=== PATIENT | male | born 1955 | race Caucasian/White ===

== ENCOUNTER 2025-04-07 22:01 | Inpatient (IN) | payer MEDICARE, OTHER, SELFPAY ==
[2025-04-07] VITALS (41 sets, daily range): BP systolic 82–195; BP diastolic 59–113; BMI 26.9
[2025-04-07] MEDS: ADRENALIN 250 IV (19:26)
[2025-04-07 19:38] LABS: Venous Blood Gas B.E. -7.9 mmol/L (-4 to +4); Venous Blood Gas O2 Sat % 98.5 %
[2025-04-07 19:44] LABS: Hematocrit 37.2 % (39.0-52.0); Hemoglobin 11.7 g/dL (13.0-18.0); Mean Corp Hgb Conc. 31.5 g/dL (33.0-37.0); Mean Corpuscular Volume 102.2 fL (80.0-94.0); Nucleated Red Blood Cells % 0.6 % (-); Platelet Count 166 10^3/uL (130-400); Red Cell Dist. Width 13.7 % (11.5-14.5)
[2025-04-07 19:57] LABS: APTT 34.9 Sec (23.4-35.0); INR 1.20; PT 15.5 Sec (11.4-14.6)
[2025-04-07 19:58] LABS: ALT (SGPT) 119 U/L (0-50); AST (SGOT) 203 U/L (17-59); Albumin 3.7 g/dl (3.5-5.0); Alkaline Phosphatase 89 U/L (38-126); Blood Urea Nitrogen 35 mg/dl (9-20); Calcium 8.9 mg/dl (8.4-10.2); Carbon Dioxide 21 mmol/L (22-30); Chloride 103 mmol/L (98-107); Glucose 327 mg/dl (70-99); Potassium 4.5 mmol/L (3.5-5.1); Sodium 137 mmol/L (135-145); Total Protein 7.0 g/dl (6.3-8.2); eGFR > 60.00
[2025-04-07 20:04] LABS: Troponin I 0.018 ng/ml
--- NOTE | 2025-04-07 20:13 | ED.GENMED ---
History of Present Illness
General
Chief Complaint: CODE
Time Seen by Provider: 04/07/25 19:03
History of Present Illness
History of Present Illness:
Patient presents to the emergency department status post cardiac arrest. Per report, patient is wheelchair-bound, has a PEG tube. He had a witnessed event while in his wheelchair where he became pale and unresponsive. He was not in a shockable
rhythm. He had about 26 minutes of ACLS with chest compressions. He was given multiple rounds of epinephrine and started on an epinephrine drip by medics. He was intubated in the field. There was a large amount of food in the airway found during
laryngoscopy. On arrival patient hypotensive, unresponsive, intubated. He had received no sedation prior to arriving at the hospital
Phy Exam
Physical Exam
Physical Exam:
GENERAL APPEARANCE: Obtunded, GCS 3 T
EYES pupils dilated and nonreactive
EARS/NOSE/THROAT Mucous membranes moist, endotracheal tube in place
HEAD/NECK normocephalic atraumatic, neck is supple.
RESPIRATORY patient does not have breath sounds on the right, no wheezes, no crackles
CARDIAC regular tachycardia noted, palpable peripheral pulses
ABDOMINAL soft, nondistended, peg tube in place
MUSCLES/EXTREMITIES tibial IO in place
SKIN pale
Course
Orders/Labs/Results
Orders:
Orders
04/07/25 19:06
Electrocardiogram (*1) Urgent
Reason for Study: Chest Pain
Cardiac Monitoring- Treatment ONCE
EKG- Treatment ONCE
IV Insert/Care/Rem.- Treatment PRN
04/07/25 19:10
Complete Blood Count/With Diff Urgent
Comprehensive Metabolic Panel Urgent
Lactic Acid Urgent
PTT Urgent
Prothrombin Time Urgent
Troponin I Urgent
04/07/25 19:11
Venous Blood Gas Urgent
%Oxygen/Room Air: 100
04/07/25 19:14
Chest X-ray Portable [CR Chest Portable - 1 View] Stat
Comment:
Reason For Exam: post cardiac arrest
Reason Study Needs to be Portable: Patient Unstable
04/07/25 19:17
EPINEPHrine 4 mg/250 mL NSS [Adrenalin] 4 mg in 250 ml .ROUTE .STK-MED
04/07/25 19:25
EPINEPHrine 4 mg/250 mL NSS [Adrenalin] 4 mg in 250 ml IV NOW
Initial dose in mcg/min, then titrate:: 10
Titrate to keep:: SBP > 90 mmHg
Titrate by mcg/min:: 0.5-1 mcg/min
Frequency of titrations (minutes):: 5
Maximum dose in mcg/min:: 10
Begin to taper infusion when:: Remained at goal for 4hrs
Taper by mcg/min:: 0.5-1 mcg/min
Frequency of taper (minutes) if patient maintains goal:: 30
Taper to off?: Yes
If infusion off & no longer maintaining goal:: Contact Provider
04/07/25 20:02
Chest X-ray Portable [CR Chest Portable - 1 View] Stat
Comment:
Reason For Exam: R chest tube placement
Reason Study Needs to be Portable: Patient Unstable
04/07/25 20:04
Azithromycin 500 mg/250 ml [Zithromax Infusion] 500 mg in 250 ml IV NOW
CefTRIAXone [Rocephin] 1,000 mg IV NOW STA
Sterile Water [Sterile Water For Injection] 10 ml IV NOW STA
04/07/25 20:43
ABG [Arterial Blood Gas] Urgent
%Oxygen/Room Air: 100
04/07/25 20:45
CT Head W/o Iv Contrast Urgent
Comment:
Reason For Exam: altered mental status, cardiac arrest
04/07/25 21:13
Admit/Transfer Patient As Directed
Co-Sign Provider:
Level of Care: Inpatient admission
Assign to:: ICU
Physician / Group: Temo
Diagnosis: Cardiac arrest
Reason for Hospitalization: Cardiac arrest
Expected length of stay greater than two midnights?: Yes
ELOS- Estimated Length of Stay in days: 2
I certify the patient meets the requirements for IP care: Yes
04/07/25 21:15
Type+Screen Urgent
BBK Wristband Number:
04/07/25 21:20
Code Status As Directed
Resuscitation Status: Full Code
04/07/25 21:24
PRN Pain Medication Management As Directed
May give lesser potent ordered pain med per pt: Yes
preference::
Protocol:: Medication orders for pain may be administered in a
manner that supports deferring to patient preference
when the pt is:
- Requesting an ordered lesser potent pain medication.
Least to most potent pain medications are defined
as: acetaminophen < NSAID < tramadol < opioids
(morphine, oxycodone, hydromorphone).
- Requesting a lesser dose of the same medication IF
ORDERED.
- Requesting a less intrusive route of administration
if both routes are prescribed by the provider (PO <
IV).
04/07/25 21:25
CT Chest PE Study Stat
Comment:
Reason For Exam: cardiac arrest
04/07/25 22:13
Bisacodyl [Dulcolax] 10 mg RECTAL [id number] PRN
Dextrose 50%-Water [Dextrose 50% Syringe] 12.5 grams IV [id number] PRN
Docusate W/Senna [Senokot-S] 1 tablet PO BIDPRN PRN
FentaNYL 1,000 MCG/100 ML [Sublimaze] 1,000 mcg in 100 ml IV PER PROTOCOL
Indication:: Deep Sedation
Begin Infusion:: Now
Goal:: RASS </= -3, BIS 40-60, ventilator synchrony
Maximum dose in mcg/hr:: 300
Initial Dose in mcg/hr:: 2
Titration Instructions:: Titrate Q30 min until ventilator synchrony, RASS or BIS goal is met.
Titration Instructions:: If RASS >/= -2 or BIS > 60 or ventilator dyssynchrony:
Titration Instructions:: administer bolus dose and increase infusion by 25 mcg/hr.
Titration Instructions:: Administer analgesia bolus dose(s) & titrate analgesia prior to
Titration Instructions:: adjusting sedation.
Over-sedation Instructions:: if BIS < 40 and pt is synchronous with ventilator, decrease infusion by
Over-sedation Instructions:: 25 mcg/hr every 2 hours until BIS = 40-60.
Over-sedation Instructions:: Do not wean infusion to off if patient is receiving a continuous NMBA or
Over-sedation Instructions:: has received a bolus dose of NMBA within the past 3 hours.
Notify provider:: immediately if pt exhibits signs/symptoms of chest wall rigidity,
Notify provider:: hemodynamic instability, or agitation/pain despite maximum dosing.
Additional Instructions:: Patient MUST be mechanically ventilated.
Fentanyl Citrate/Pf [Sublimaze] 50 mcg IV [id number] PRN
Fentanyl Citrate/Pf [Sublimaze] 85 mcg IV NOW STA
Glucagon [GlucaGen] 1 mg IM PRN PRN
Ipratropium/Albuterol Sulfate [Duoneb] 3 ml INH R Q4HPRN PRN
Lactated Ringers [Lr] 1,000 ml IV 100 mls/hr
Ondansetron Injectable [Zofran] 4 mg IV Q6HPRN PRN
Polyethylene Glycol Powder [Miralax] 17 grams TUBE DAILYPRN PRN
04/07/25 22:13
Activity As Directed
Activity Level: With Assistance
Bedside Glucose Monitoring As Directed
Frequency: AC&HS
Additional Instructions:: Change to q6h if pt on TPN, tube feeding or not eating
Gastrointestinal Tubes As Directed
Type: Gastrostomy
To suction?: No
Irrigate tube?: Yes
Irrigant: Normal Saline - 0.9% NaCl
Frequency: Q4H
Amount in mls: 30
Irrigation Directions: Irrigate Q4H and PRN
Vital Signs As Directed
Frequency: Per unit guidelines
Pulse Ox/cont/shift [RESP] Routine
Quantity: 1
Ventilator Initial Settings [RESP] Routine
Tidal Volume: 450
Rate: 20
FIO2: 100
PEEP: 5
DX Deep Vein Thrombosis Video Routine
04/07/25 23:11
Troponin I Q6H
Valproic Acid Level [Depakane] Routine
04/08/25 00:00
Ampicillin/Sulbactam 3 G [Unasyn] 3 gm 0.9% Sodium Chloride 100 ml [Nss] 100 ml IV Q6H
Insulin Aspart Corrective Low [Novolog Flexpen-Low Resistance] See Protocol SC Q6
04/08/25 04:30
Complete Blood Count/No Diff IN AM
Glycohemoglobin (HgbA1c) IN AM
Magnesium IN AM
Troponin I Q6H
04/08/25 Breakfast
NPO
Allow oral meds: No
Allow clear liquids: No
04/08/25 08:00
Famotidine [Pepcid] 20 mg TUBE DAILY
Polyethylene Glycol Powder [Miralax] 17 grams TUBE DAILY
04/08/25 13:54
Troponin I Q6H
04/08/25 18:00
Enoxaparin Sodium [Lovenox] 40 mg SC QPM
Levothyroxine [Synthroid] 50 mcg TUBE QPM
Abnormal Lab Results
04/07/25 04/07/25 04/07/25
19:10 19:11 20:43
RBC 3.64 L 10^6/uL
(4.70-6.10)
Hgb 11.7 L g/dL
(13.0-18.0)
Hct 37.2 L %
(39.0-52.0)
MCV 102.2 H fL
(80.0-94.0)
MCH 32.1 H pg
(27.0-31.0)
MCHC 31.5 L g/dL
(33.0-37.0)
Abs Immat Gran (auto) 0.3 H 10^3/uL
(0-0.05)
Immature Gran % 2.5 H %
(0-0.5)
PT 15.5 H Sec
(11.4-14.6)
pH 7.26 L
(7.35-7.45)
pCO2 50 H mmHg
(35-48)
pO2 142 H mmHg
(83-108)
ABG O2 Sat (Measured) 100.0 H %
(94-98)
VBG pH 7.17 L*
(7.32-7.43)
VBG pCO2 58 H mmHg
(35-48)
VBG pO2 116 H mmHg
(30-50)
VBG HCO3 21.2 L mmol/L
(22-27)
Carbon Dioxide 21 L mmol/L
(22-30)
BUN 35 H mg/dl
(9-20)
Glucose 327 H mg/dl
(70-99)
Lactic Acid 7.7 H* mmol/L
(0.7-2.0)
AST 203 H U/L
(17-59)
ALT 119 H U/L
(0-50)
04/07/25 19:10
04/07/25 19:10
Vital Signs
Initial and Last Documented VS:
Initial Vital Signs
Pulse
126
04/07/25 19:08
Last Documented Vital Signs
Temp Pulse Resp BP Pulse Ox
96.9 F L 97 20 134/86 93
04/08/25 13:00 04/08/25 13:27 04/08/25 13:27 04/08/25 10:22 04/08/25 13:27
Procedures
Central Line
Right Femoral:
Indication for procedure:: Critical illness, no intravenous access
Procedure completed by: Dr Kahn
Consent form signed: No
If no, reason: Emergency procedure
Central line lumen: triple
Number of attempts: 1
Central line complications: none
Sterile dressing applied?: Yes
Chest Tube
Indication for procedure:: Moderate R sided pneumothorax, cardiac arrest
Procedure completed by: Dr Kahn
Consent form signed: No
If no, reason: Emergency procedure
Chest tube placed to: right side
Preparation: cleaned with Betadine
Chest tube position: position confirmed on CXR
Chest tube sutured to skin?: Yes
Chest tube complications: none
*Pulse Oximetry
SaO2: 91
Oxygen Mode of Delivery: Ventilator
Patient hypoxic: yes
*Critical Care Note
Total Time (30-74mins, 75-104mins- exclusive of procedures): 35
comment:
35 minutes
ED Attending Note
ED Attending Note
ED Attending Note:
Patient presents from [facility] after a cardiac arrest. Has a PEG tube, wheelchair dependent, hx of hep c, diabetes
apparently was eating a peanut butter sandwich when he had a witnessed cardiac arrest
had ACLS with chest compressions for about 26 minutes. No shockable rhythms
on arrival he had ROSC and was intubated
he was hypotensive in shock, norepinephrine was started then he became hypertensive and it was turned off -- it is currently off
he had a moderate sized R sided pneumothorax and 14 fr pigtail chest tube was placed. It is at the base but functioning well, pneumothorax resolved on repeat CXR
suspect he aspirated as there was food content in the airway
there is no obvious consolidation on xray but the RUL and RML look like there may be a developing infiltrate
Covering with CTX/azithro for possible pneumonia
will be admitted to ICU
-
Portions of this chart may have been created with voice recognition software.� Occasional wrong word or��sound alike� substitutions may have occurred due to the inherent limitations of voice recognition software.
Discharge Plan
Departure
Patient Disposition: Admit
Date of Disposition: 04/07/25
Time of Disposition: 20:18
Admit to: ICU
Presentation/result/management discussed w/ accepting MD/DO: Hospitalist
Discharge Problem:
Cardiac arrest, Aspiration into airway, Pneumothorax
Interventions
Interventions:
*Risk Screen - Suicide Last Done: 04/07/25 19:22
*General Assessment Last Done: 04/07/25 19:22
*Neglect/Abuse Screening Last Done: 04/07/25 19:22
*ED- Fall Risk Assessment Last Done: 04/07/25 19:22
*ED COVID-19 Vaccine History Last Done: 04/07/25 19:22
*ED Influenza Vaccine History Last Done: 04/07/25 19:22
*Nursing Disposition Last Done: 04/07/25 22:18
ED- Cardiac Assessment Last Done: 04/07/25 19:32
ED- Pulmonary Assessment Last Done: 04/07/25 19:32
Discharge Date and Time
Discharge Date/Time: 04/07/25 22:19
[2025-04-07] MEDS: ZITHROMAX INFUSION 250 IV (20:32)
[2025-04-07] MEDS: ROCEPHIN 1000 MG IV (20:32)
--- NOTE | 2025-04-07 20:47 | HPS.HSE ---
Family Physician
-
Family Physician: Kp Fox
Chief Complaint
-
Cardiac arrest
History of Present Illness
This is a 70-year-old wheelchair-bound patient status post PEG tube placement who had a witnessed cardiac arrest at [facility]..
Patient is unable to provide any history. According to records patient was eating a peanut butter sandwich when he had a witnessed cardiac arrest. He had ACLS with chest compressions for about 26 minutes.
Patient by history is wheelchair-bound, he status post maker and is strictly NPO. Unclear why he is currently at the rehab. He has had history of diabetes complicated by diabetic foot ulcer. He has COPD with moderate asthma. It was unclear
provide the patient was eating a sandwich but he was not supposed to have it. It is felt that he likely aspirated and choked and resulted in cardiac arrest.
He arrived to the emergency department intubated on norepinephrine with hypotension on arrival. Norepinephrine was weaned off.
Current blood pressures been 127/82 with a pulse of 127 and was satting 91% on the vent. ECG shows sinus tachycardia at a rate of 127. His chest x-ray did showed a moderate right pneumothorax. Pigtail catheter has been placed and found to be
functioning well with resolution of pneumothorax on repeat chest x-ray.
Troponin was 0.018. He had a white count of 13, hemoglobin and platelets were within the normal range. Electrolytes BUN and creatinine were normal with a glucose of 300. He had mild elevation in AST to 200 and ALT to 100 with normal bilirubin
levels.
Medical History
Past Medical History
Past Medical History: Reports COPD, GERD, Hypercholesterolemia, IDDM, Psychiatric (Schizoaffective disorder) and Other (Peripheral vascular disease)
Past Surgical History: Reports Other
Social History
Tobacco: Non-smoker
Alcohol: None
Drug: None
Living: Custodial
Family History
Family History: Not pertinent
Allergies / Home Medications
Allergies reflects when Allergies were last updated in [employer].
Home Medications with original date entered in [employer]
Allergy/Medication List:
Allergies
Allergy/AdvReac Type Severity Reaction Status Date / Time
adhesive tape Allergy Unknown Verified 04/07/25 20:25
bee venom protein (honey bee) Allergy Unknown Verified 04/07/25 20:25
bupropion (From Wellbutrin) Allergy Unknown Verified 04/07/25 20:25
celecoxib (From Celebrex) Allergy Unknown Verified 04/07/25 20:25
trazodone Allergy Unknown Verified 04/07/25 20:25
Home Medications
Metamucil 4 In 1 Fiber Packets 1 packet feeding tube DAILYPRN PRN constipation 04/07/25
acetaminophen 325 mg tablet (Tylenol) 650 mg feeding tube Q4HPRN PRN MILD PAIN 04/07/25
albuterol sulfate 90 mcg/actuation aerosol inhaler 2 puff inhalation R Q4HPRN PRN sob 04/07/25
aluminum-mag hydroxide-simethicone 400 mg-400 mg-40 mg/5 mL oral susp (Maalox Maximum Strength) 30 ml feeding tube Q6HPRN PRN GERD 04/07/25
atorvastatin 40 mg tablet (Lipitor) 40 mg feeding tube HS High Cholesterol 04/07/25
balsam abimael-castor oil topical ointment (Venelex topical ointment) 1 applic topical BID BLLE UE 04/07/25
bisacodyl 10 mg rectal suppository (Dulcolax (bisacodyl)) 10 mg AZ DAILYPRN PRN if no bm aftr mom 04/07/25
budesonide 160 mcg-glycopyr 9 mcg-formot 4.8 mcg/actuation HFA inhaler (Breztri Aerosphere) 2 inh inhalation R BID sob 04/07/25
cephalexin 250 mg/5 mL oral suspension 500 mg feeding tube QID Infection 04/07/25
cholecalciferol (vitamin D3) 10 mcg/5 mL (400 unit/5 mL) oral liquid 50 mcg PO DAILY G-TUBE 04/07/25
cyanocobalamin (vitamin B-12) 2,500 mcg tablet 2,500 mcg feeding tube DAILY up 04/07/25
famotidine 20 mg tablet (Pepcid) 20 mg feeding tube DAILY gerd 04/07/25
ferrous sulfate 220 mg (44 mg iron)/5 mL oral solution 330 mg feeding tube BID Supplement 04/07/25
guaifenesin 100 mg/5 mL oral liquid (Reyna-Tussin) 100 mg feeding tube Q4HPRN PRN COUGH 04/07/25
insulin aspart U-100 100 unit/mL (3 mL) subcutaneous pen (Novolog FlexPen U-100 Insulin aspart) 1 sliding scale dose SC ACHS Diabetes 04/07/25
insulin degludec 100 unit/mL (3 mL) subcutaneous pen 15 unit SC HS Diabetes 04/07/25
levothyroxine 50 mcg tablet (Synthroid) 50 mcg feeding tube QPM Thyroid 04/07/25
lidocaine 4 % topical patch 1 patch topical DAILY BACK 04/07/25
loperamide 2 mg capsule 2 mg feeding tube Q6HPRN PRN diarrhea 04/07/25
magnesium hydroxide 400 mg/5 mL oral suspension (Milk of Magnesia) 2,400 mg feeding tube DAILYPRN PRN if no bm aftr 3rd day 04/07/25
magnesium oxide 400 mg feeding tube BID Supplement 04/07/25
melatonin 3 mg tablet 3 mg feeding tube HS Sleep 04/07/25
metformin 1,000 mg tablet 1,000 mg feeding tube BID Diabetes 04/07/25
mupirocin 2 % topical ointment 1 applic topical DAILYPRN PRN NOSE LACERATION 04/07/25
mupirocin 2 % topical ointment 1 applic topical Q48H LACERATION 04/07/25
nutrition tx glu intol,lac-free,soy-fiber 0.06 gram-1.2 kcal/mL liquid (Glucerna 1.2 Kwan) 1 ea feeding tube QPM feeding 04/07/25
olanzapine 10 mg tablet 12.5 mg feeding tube HS Mental Health/Anxiety 04/07/25
phenylephrine 0.25 %-mineral oil 14 %-petrolatm 74.9 % rectal ointment (Preparation H) 1 applic AZ DAILYPRN PRN hemmorriods 04/07/25
polyvinyl alcohol-povidone (PF) 1.4 %-0.6 % eye drops in a dropperette (Refresh Classic (PF)) 2 drp BOTH EYES BIDPRN PRN DRYNESS 04/07/25
povidone-iodine 10 % topical solution (Betadine) 1 applic topical DAILYPRN PRN LEFT GOMEZ 04/07/25
povidone-iodine 10 % topical solution (Betadine) 1 applic topical QPM LEFT GOMEZ 04/07/25
sodium chloride 1 gram tablet 2,000 mg PO BID Supplement 04/07/25
sodium phosphates 19 gram-7 gram/118 mL enema (Fleet Enema) 118 ml AZ DAILYPRN PRN if no bm aftr dulcolax 04/07/25
therapeutic multivitamin 5 ml feeding tube QPM Supplement 04/07/25
valproic acid (as sodium salt) 250 mg/5 mL oral solution 500 mg feeding tube TID Neurological Condition 04/07/25
witch catina 20 % topical pads 1 pad topical Q2HPRN PRN hemmoriods 04/07/25
Review of Systems
-
Unable to obtain full review of systems at this time due to: Patient Intubation
Physical Exam
Vital Signs
Vital Signs
Pulse Resp BP Pulse Ox
127 18 127/82 91
04/07/25 19:25 04/07/25 19:15 04/07/25 19:25 04/07/25 20:14
Physical Exam
General: Intubated
HEENT: NormoCephalic and Anicteric; No PERRLA
Respiratory: Clear
Cardiac: S1/S2 and Tachycardia
Breast: Deferred by me
GI: Soft, Non Distended, Normal Bowel Sounds and Peg Tube
Rectal: Deferred by Provider
Genito-urinary: Deferred by me
Musculoskeletal: No Clubbing, No Cyanosis and Edema, Right Lower Extremity (trace)
Skin: Warm and Rash
Neuro: Other (Obtunded. Intubated. No reaction and no sedation)
Laboratory Results
-
04/07/25 19:10
04/07/25 19:10
Laboratory Results
PT 15.5 Sec (11.4-14.6) H 04/07/25 19:10
INR 1.20 04/07/25 19:10
APTT 34.9 Sec (23.4-35.0) 04/07/25 19:10
Lactic Acid 7.7 mmol/L (0.7-2.0) H* 04/07/25 19:10
Total Bilirubin 0.4 mg/dl (0.2-1.3) 04/07/25 19:10
AST 203 U/L (17-59) H 04/07/25 19:10
ALT 119 U/L (0-50) H 04/07/25 19:10
Alkaline Phosphatase 89 U/L (38-126) 04/07/25 19:10
Troponin I 0.018 ng/ml 04/07/25 19:10
Data Reviewed
-
Diagnostic Radiology: Image Personally Visualized and interpreted and Report Reviewed by me
CT Scan: Report Reviewed by me
Medical Tests (Nuc Med, Echo, EKG etc): Image Personally Visualized and interpreted
Lab Data: Labs Reviewed by me
Impression/Plan
-
IMPRESSION:
70-year-old presenting to the ED status post cardiac arrest. ACLS x 26 minutes. On arrival was intubated and unresponsive. He is not on any sedatives. Oxygen saturation is 100% on 100% FiO2. There is no pupillary response. Had a pneumothorax
likely secondary to CPR trauma but unclear if this was the cause of his arrest.
Patient apparently was in usual state of health and without any complaints with just prior to being found unresponsive. No arrhythmia noted. Current ECG sinus tachycardia and troponin is negative. He is status post chest tube with improvement in
the pneumothorax. Currently more dynamically stable.
PLAN:
Cardiac arrest -suspect secondary to aspiration but cannot rule out pneumothorax of the first etiology. No evidence of acute NE or arrhythmia. No plans for therapeutic plan at this time. Patient
-Downtime is greater than 26 minutes, currently completely unresponsive with fixed mid dilated pupils.
-Admit to ICU
-CT brain
- CT PE
-Follow-up ABG currently and maintaining good oxygenation on current vent settings
-Continue settings at respirate rate of 450 and 100% 5 FiO2
- Trend troponins
- echo in am
- Maintain MAP > 65
- maintenance fluids
- will start fentanyl analgesia
- consider eeg in am and neurology consult if remains unresponsive
- ppi ppx
- no therapeutic cooling
- cardiology consult
PTX
- s/p chest tube, monitor output for now
- repeat xray in am
- suspect secondary to trauma
PNA - No evidence of acute infiltrates.
- given possible aspiration, will treat with unasyn
- blood cultures if spike fever
- no broncospasms, continue ipratropium
Schizoaffective di/o
- check valproic acid level
- continue depakote 500 tid peg
- continue olanzapine peg
DM II
- sliding scale insulin
DVT PPX - lovenox sq
Code status - Full code as per ID records. Called emergency contact who is the sister but did not get a response. Spoke to the answering service of the listed Guardian and updated them.
[2025-04-07 20:49] LABS: B.E. -5.0 mmol/L; HCO3 22.4 mmol/L (21-28); O2 Saturation % 100.0 % (94-98); PCO2 50 mmHg (35-48); PO2 142 mmHg (83-108)
[2025-04-07 22:37] LABS: Glucose - Point of Care 316 mg/dl (70-99)
[2025-04-07] MEDS: LR 1000 IV (22:55)
[2025-04-07 23:42] LABS: Depakane 31.9 ug/ml (50.0-120.0)
[2025-04-07 23:47] LABS: ALT (SGPT) 117 U/L (0-50); AST (SGOT) 204 U/L (17-59); Albumin 3.9 g/dl (3.5-5.0); Alkaline Phosphatase 93 U/L (38-126); Blood Urea Nitrogen 41 mg/dl (9-20); Calcium 9.1 mg/dl (8.4-10.2); Carbon Dioxide 22 mmol/L (22-30); Chloride 103 mmol/L (98-107); Estimated Creatinine Clearance 72 ml/min; Glucose 347 mg/dl (70-99); Potassium 4.5 mmol/L (3.5-5.1); Sodium 138 mmol/L (135-145); Total Protein 7.3 g/dl (6.3-8.2); eGFR > 60.00
[2025-04-08] VITALS (15 sets, daily range): BP systolic 95–158; BP diastolic 66–92; BMI 25.1
[2025-04-08 00:05] LABS: Troponin I 0.367 ng/ml
[2025-04-08] MEDS: SUBLIMAZE 85 MCG IV (00:10)
[2025-04-08] MEDS: UNASYN IV ×5 (00:21→23:28)
--- NOTE | 2025-04-08 00:22 | W.PN.UPDATE ---
Update Note
Progress Note Update
Procedure Note: Arterial Line�
� Left Wrist Arrow 20 (08/27)�
Diagnosis:��Cardiac arrest
IV Line Comments: Uneventful Procedure�
Rony completed pre-procedure: Yes�
A-Line Comments: Sterile technique as per standard protocol, Ultrasound guided insertion�
Functioning�A-line in situ: Yes�
A-line Insertion Start Time:��2345
A-line in at:�2355�
[2025-04-08] MEDS: NOVOLOG FLEXPEN 12 UNITS SC (00:41)
[2025-04-08] MEDS: DIPRIVAN 100 IV (00:44)
--- NOTE | 2025-04-08 01:00 | PTCARENOTE ---
Cerebell applied per order. 0 seizure activity noted. Pt is intubated and unresponsive. Pupils are unequal and unreactive to light. No gag reflex noted. Pt does not withdraw to pain stimuli. Pt is asynchronous w/ vent. Fentanyl bolus administered by
this RN. Propofol gtt initiated by this RN per order.
[2025-04-08] MEDS: REFRESH CELLUVISC GEL 1 DROPS OPHTH (01:03)
[2025-04-08] MEDS: CARDENE 200 IV (01:10)
--- NOTE | 2025-04-08 02:00 | PTCARENOTE ---
Cardene gtt initiated by this RN for HTN but was turned off approx. 45 mins later due to overcorrection of BP.
[2025-04-08 02:11] LABS: Triglycerides 124 mg/dl (10-149)
[2025-04-08 02:15] LABS: B.E. -2.6 mmol/L; HCO3 23.7 mmol/L (21-28); O2 Saturation % 96.4 % (94-98); PCO2 46 mmHg (35-48); PO2 80 mmHg (83-108)
[2025-04-08] MEDS: OFIRMEV 100 IV ×4 (03:44→22:47)
[2025-04-08 03:46] LABS: Glucose - Point of Care 216 mg/dl (70-99)
[2025-04-08 04:54] LABS: Hematocrit 38.8 % (39.0-52.0); Hemoglobin 12.8 g/dL (13.0-18.0); Mean Corp Hgb Conc. 33.0 g/dL (33.0-37.0); Mean Corpuscular Volume 97.7 fL (80.0-94.0); Platelet Count 149 10^3/uL (130-400); Red Cell Dist. Width 13.9 % (11.5-14.5)
[2025-04-08 05:09] LABS: ALT (SGPT) 112 U/L (0-50); AST (SGOT) 237 U/L (17-59); Albumin 3.7 g/dl (3.5-5.0); Alkaline Phosphatase 78 U/L (38-126); Blood Urea Nitrogen 43 mg/dl (9-20); Calcium 9.1 mg/dl (8.4-10.2); Carbon Dioxide 25 mmol/L (22-30); Chloride 105 mmol/L (98-107); Estimated Creatinine Clearance 83 ml/min; Glucose 165 mg/dl (70-99); Magnesium 2.2 mg/dl (1.6-2.3); Potassium 4.6 mmol/L (3.5-5.1); Sodium 139 mmol/L (135-145); Total Protein 7.3 g/dl (6.3-8.2); eGFR > 60.00
[2025-04-08 05:23] LABS: Troponin I 1.050 ng/ml
--- NOTE | 2025-04-08 05:30 | PTCARENOTE ---
Pt becoming febrile. T-max 102.3. IV tylenol administered by this RN. In addition cooling blanket applied to pt per order.
[2025-04-08] MEDS: NOVOLOG FLEXPEN-HIGH RESISTANCE 1 UNITS SC ×2 (05:54→23:03)
[2025-04-08 06:03] LABS: Glucose - Point of Care 132 mg/dl (70-99)
[2025-04-08] MEDS: NSS (PRESERVATIVE FREE) 10 ML IV ×2 (07:43→19:51)
[2025-04-08] MEDS: PROTONIX IV 40 MG IV ×2 (07:43→19:51)
[2025-04-08] MEDS: LR 1000 IV ×2 (07:44→17:41)
[2025-04-08 08:59] LABS: Glycohemoglobin (HgbA1c) 6.0 % (4.0-5.6)
--- NOTE | 2025-04-08 09:02 | CON.INTV ---
Consultation
Consultation Request
Date/Time Consultation Requested: 04/08/25
Date/Time Consultation Performed: 04/08/25 08:00
Requesting Provider: Gilbert Morley MD
Performing Provider: William Wade DO (Resident); Nate Mathews MD
Reason for Consultation: ICU Management Post Cardiac Arrest
Medical History
-
Chief Complaint: Cardiac Arrest, Altered Mental Status
History of Present Illness:
Moustapha Brown is a 70M w/ PMHx COPD, GERD, HLD, IDDM, schizoaffective disorder, PVD, wheelchair-bound, status post PEG tube placement who had a witnessed cardiac arrest at the custodial. Patient status post open procedure, has a PEG tube in
place, is supposed to be NPO. However patient somehow obtained a preoperative sandwich which he likely choked on and aspirated resulting in cardiac arrest while at the custodial. Per custodial staff and EMS, patient was not in a shockable
rhythm, received 26 minutes of ACLS with chest compressions and multiple rounds of epi. A large amount of food was found in the airway during laryngoscopy and patient was intubated in the field. He arrived to the emergency department intubated and
hypotensive on an epinephrine drip.
ED COURSE
Upon arrival to the Emergency Department, patient was obtunded with a GCS of 3, pupils were dilated and unreactive, ET tube was in place, patient had no breath sounds on the right and was tachycardic.
CBC unremarkable
VBG pH 7.17, pCO2 58, pO2 116, HCO3 21.2
CMP with elevated BUN, glucose of 327
Lactic acid on arrival 7.7
AST 203 ALT 119
Troponin initially negative, increased to 0.367, and then 1.05
CXR (initial) moderate right PTX
Chest tube placed
CXR (subsequent): Residual small right PTX
CT head: No acute intracranial process. Possible dense MCA sign.
CT chest: No evidence of PE. Rib fractures present. Chest tube in place. Probable aspiration pneumonia within the right upper lobe, superior segment of right lower lobe, dependent left lower lobe.
ECG sinus tach, possible old inferior infarct
History continues to be limited in the setting of patient acuity. Per nursing, overnight patient had vent asynchrony with fentanyl and was transitioned to propofol. He continues to be without pupillary light reflex, gag reflex, cough reflex.
Past Medical History
Past Medical History: Other (COPD, GERD, HLD, IDDM, schizoaffective disorder, PVD, wheelchair-bound, status post PEG tube placement)
Social History
Living: [facility]
Family History
Family History: Unable to Obtain
Allergies / Home Medications
Allergies
Allergy/AdvReac Type Severity Reaction Status Date / Time
adhesive tape Allergy Unknown Verified 04/07/25 20:25
bee venom protein (honey bee) Allergy Unknown Verified 04/07/25 20:25
bupropion (From Wellbutrin) Allergy Unknown Verified 04/07/25 20:25
celecoxib (From Celebrex) Allergy Unknown Verified 04/07/25 20:25
trazodone Allergy Unknown Verified 04/07/25 20:25
Home Medications
�Medication �Instructions �Recorded �Confirmed �Last Taken �Type
Metamucil 4 In 1 Fiber Packets 1 packet feeding tube DAILYPRN PRN 04/07/25 04/07/25 Unknown History
constipation
acetaminophen 325 mg tablet 650 mg feeding tube Q4HPRN PRN 04/07/25 04/07/25 03/07/25 History
(Tylenol) MILD PAIN
albuterol sulfate 90 mcg/actuation 2 puff inhalation R Q4HPRN PRN sob 04/07/25 04/07/25 Unknown History
aerosol inhaler
aluminum-mag hydroxide-simethicone 30 ml feeding tube Q6HPRN PRN GERD 04/07/25 04/07/25 Unknown History
400 mg-400 mg-40 mg/5 mL oral susp
(Maalox Maximum Strength)
atorvastatin 40 mg tablet (Lipitor) 40 mg feeding tube HS High 04/07/25 04/07/25 04/06/25 History
Cholesterol
balsam abimael-castor oil topical 1 applic topical BID BLLE UE 04/07/25 04/07/25 04/07/25 History
ointment (Venelex topical ointment)
bisacodyl 10 mg rectal suppository 10 mg IA DAILYPRN PRN if no bm 04/07/25 04/07/25 Unknown History
(Dulcolax (bisacodyl)) aftr mom
budesonide 160 mcg-glycopyr 9 2 inh inhalation R BID sob 04/07/25 04/07/25 04/07/25 History
mcg-formot 4.8 mcg/actuation HFA
inhaler (Breztri Aerosphere)
cephalexin 250 mg/5 mL oral 500 mg feeding tube QID Infection 04/07/25 04/07/25 04/07/25 History
suspension
cholecalciferol (vitamin D3) 10 50 mcg PO DAILY G-TUBE 04/07/25 04/07/25 04/07/25 History
mcg/5 mL (400 unit/5 mL) oral
liquid
cyanocobalamin (vitamin B-12) 2,500 mcg feeding tube DAILY 04/07/25 04/07/25 04/07/25 History
2,500 mcg tablet Supplement
famotidine 20 mg tablet (Pepcid) 20 mg feeding tube DAILY gerd 04/07/25 04/07/25 04/07/25 History
ferrous sulfate 220 mg (44 mg 330 mg feeding tube BID Supplement 04/07/25 04/07/25 04/07/25 History
iron)/5 mL oral solution
guaifenesin 100 mg/5 mL oral 100 mg feeding tube Q4HPRN PRN 04/07/25 04/07/25 03/08/25 History
liquid (Reyna-Tussin) COUGH
insulin aspart U-100 100 unit/mL 1 sliding scale dose SC ACHS 04/07/25 04/07/25 04/05/25 History
(3 mL) subcutaneous pen (Novolog Diabetes
FlexPen U-100 Insulin aspart)
insulin degludec 100 unit/mL (3 15 unit SC HS Diabetes 04/07/25 04/07/25 04/06/25 History
mL) subcutaneous pen
levothyroxine 50 mcg tablet 50 mcg feeding tube QPM Thyroid 04/07/25 04/07/25 04/07/25 History
(Synthroid)
lidocaine 4 % topical patch 1 patch topical DAILY BACK 04/07/25 04/07/25 04/07/25 History
loperamide 2 mg capsule 2 mg feeding tube Q6HPRN PRN 04/07/25 04/07/25 Unknown History
diarrhea
magnesium hydroxide 400 mg/5 mL 2,400 mg feeding tube DAILYPRN PRN 04/07/25 04/07/25 Unknown History
oral suspension (Milk of Magnesia) if no bm aftr 3rd day
magnesium oxide 400 mg feeding tube BID Supplement 04/07/25 04/07/25 04/07/25 History
melatonin 3 mg tablet 3 mg feeding tube HS Sleep 04/07/25 04/07/25 04/06/25 History
metformin 1,000 mg tablet 1,000 mg feeding tube BID Diabetes 04/07/25 04/07/25 04/07/25 History
mupirocin 2 % topical ointment 1 applic topical DAILYPRN PRN NOSE 04/07/25 04/07/25 04/07/25 History
LACERATION
mupirocin 2 % topical ointment 1 applic topical Q48H LACERATION 04/07/25 04/07/25 04/07/25 History
nutrition tx glu 1 ea feeding tube QPM feeding 04/07/25 04/07/25 04/06/25 History
intol,lac-free,soy-fiber 0.06
gram-1.2 kcal/mL liquid (Glucerna
1.2 Kwan)
olanzapine 10 mg tablet 12.5 mg feeding tube HS Mental 04/07/25 04/07/25 04/06/25 History
Health/Anxiety
phenylephrine 0.25 %-mineral oil 1 applic IA DAILYPRN PRN 04/07/25 04/07/25 Unknown History
14 %-petrolatm 74.9 % rectal hemmorriods
ointment (Preparation H)
polyvinyl alcohol-povidone (PF) 2 drp BOTH EYES BIDPRN PRN DRYNESS 04/07/25 04/07/25 09/16/24 History
1.4 %-0.6 % eye drops in a
dropperette (Refresh Classic (PF))
povidone-iodine 10 % topical 1 applic topical DAILYPRN PRN LEFT 04/07/25 04/07/25 Unknown History
solution (Betadine) GOMEZ
povidone-iodine 10 % topical 1 applic topical QPM LEFT GOMEZ 04/07/25 04/07/25 04/07/25 History
solution (Betadine)
sodium chloride 1 gram tablet 2,000 mg PO BID Supplement 04/07/25 04/07/25 04/07/25 History
sodium phosphates 19 gram-7 118 ml IA DAILYPRN PRN if no bm 04/07/25 04/07/25 Unknown History
gram/118 mL enema (Fleet Enema) aftr dulcolax
therapeutic multivitamin 5 ml feeding tube QPM Supplement 04/07/25 04/07/25 04/07/25 History
valproic acid (as sodium salt) 250 500 mg feeding tube TID 04/07/25 04/07/25 04/07/25 History
mg/5 mL oral solution Neurological Condition
witch catina 20 % topical pads 1 pad topical Q2HPRN PRN hemmoriods 04/07/25 04/07/25 Unknown History
Review of Systems
-
Unable to Obtain full review of systems at this time due to: Acuity and Patient Intubation
Vitals / Labs / Diagnostic Testing
Vital Signs
Temp Pulse Resp BP Pulse Ox
101.4 F H 111 20 117/80 98
04/08/25 08:00 04/08/25 08:00 04/08/25 08:00 04/08/25 08:00 04/08/25 08:00
Lab Data
04/08/25 04:30
04/08/25 04:30
Laboratory Results
04/07/25 04/07/25 04/08/25
19:10 20:43 02:03
PT 15.5 H
INR 1.20
APTT 34.9
pH 7.26 L 7.32 L
pCO2 50 H 46
pO2 142 H 80 L
HCO3 22.4 23.7
O2 Delivery Level
Diagnostic Testing:
CXR: Residual small right pneumothorax status post chest tube placement.
CT HEAD: No convincing acute intracranial process. Probable chronic calcification at the M1/M2 junction, less likely dense MCA sign. Consider follow-up CT head in 2-3 hours and/or CTA head/neck, as clinically indicated.
CHEST CT: No evidence of pulmonary embolism. Nondisplaced/minimally displaced fractures involving the anterior/anterolateral right second and third ribs and left second through seventh ribs. Right pneumothorax with chest tube in place. Findings
suggesting probable aspiration pneumonia within the bilateral lungs as described.
Physical Exam
-
HEENT: Moist Mucous Membranes and Other (Pupils fixed and dilated. )
Cardiovascular: S1/S2, Regular Rhythm and Other (tachycardic)
Respiratory: Other (symmetric breath sounds; coarse R>L; currently intubated; R sided chest tube with occasional air leak)
GI: Soft and Other (PEG tube in place; NG tube draining coffee ground material; Mejia draining clear straw colored urine)
Neurology: Other (no pupillary light, gag, or cough reflex; sedated )
Skin: Warm
Assessment
-
Moustapha Brown is a 70M wheelchair bound patient who is s/p an unknown procedure (history limited), wheelchair bound, and NPO who had a witnessed cardiac arrest at [facility] requiring 26 minutes of ACLS with chest compressions and multiple rounds of
epinephrine, as well as intubation with large amounts of food found in the airway. He continued to be obtunded through the course of his ED evaluation and ICU admission. Additionally, he is s/p R chest tube for moderate right PTX and has evidence of
probable aspiration pneumonia on chest imaging.
1. Post cardiac arrest
- Targeted temparature management for 24 hours s/p ROSC
- Patient presented with Tmax 102; Goal temp 89.6-96.8F
- BP currently maintained off of pressors and cardene drip
- Continue maintenance fluid, LR @100ml/hr
- Continue seizure assessment w/ Ceribel
- Currently intubated; maintain SaO2 > 92%.
- Continue to monitor neurologic status, ordered neuro consult
- Consider repeat CT Head
- Monitor mejia outputs
2. Aspiration Pneumonia
- Continue Unasyn
- Monitor temperature curves, WBCs
3. Right sided Pneumothorax
- Status post chest tube
- Monitor drainage; 7cc so far
- Monitor for air leak
4. Suspected Upper GI Bleed
- Coffee Ground Material in NG suction
- Continue to monitor outputs
- D/c Lovenox, transition to SCDs
- Avoid antiplatelets
- IV PPI
5. Elevated troponin
- Likely in the setting of prolonged cardiac arrest
- No signs of ischemia on EKG
- Continue to trend troponin
- Order ECHO
Data Reviewed
-
EKG: Tracing personally visualized and interpreted and Report reviewed by me
Radiology: Image personally visualized and interpreted and Report reviewed by me
CT Scan: Image personally visualized and interpreted and Report reviewed by me
Labs: Labs reviewed by me
Critical Care Time (in minutes): 62
--- NOTE | 2025-04-08 09:32 | PTCARENOTE ---
Assumed care of patient at 0700. Admitted with witnessed cardiac arrest. Assessments and vital signs ongoing and documented in flowsheets. Cerebell seizure monitoring in place, no seizure burden. R lateral chest tube intact. Patient remains
unresponsive on vent, unequal pupils- nonreactive to light. No cough, gag or corneal reflex noted. Does not withdraw to painful stimuli. Care ongoing.
--- NOTE | 2025-04-08 11:03 | CM ---
Patient is intubated. Called to speak with Guardian, Guillaume Bright from [facility]. Ms. Bright is out of the office for this week. I was referred to the Vulnerability Researcher, Mckenna Mcbride @ [phone]. Mckenna reports that patient is a
[facility] resident at [facility]. She is unsure how long he has been there. Patient was referred to [facility] by the Courts approximately 4-6 months ago. Patient is w/ch bound, does speak but speech is slurred and difficult to
understand at times, he is alert and oriented to self and usually to place depending where he is. He is NPO and has a Peg tube for feeds. History of Schizoaffective disorder. Unknown if patient has had any psychiatric hospitalizations in the past
[address] Kp Fox. Pharmacy is [facility] Discharge POC: Return to [facility] to resume LTC.
[2025-04-08 12:02] LABS: Glucose - Point of Care 168 mg/dl (70-99)
[2025-04-08] MEDS: NOVOLOG FLEXPEN-HIGH RESISTANCE 2 UNITS SC (12:12)
--- NOTE | 2025-04-08 12:18 | CARDSERVDEF ---
Echocardiogram with Definity completed after protocol screening completed. Allergies verified.
Patent IV site: Left cephalic 20 G PC
IV site flushed with 0.9% NaCl pre and post administration.
Diluted bolus method utilized to enhance visualization of ventricular rollins.
Total volume given: _3___ mL
Patient tolerated all procedures well without complications.
[2025-04-08] MEDS: DUONEB 3 ML INH ×2 (13:26→19:38)
[2025-04-08 14:30] LABS: Troponin I 0.964 ng/ml
--- NOTE | 2025-04-08 15:18 | W.PN.HOSP.TC ---
Today's Communication/Plan
-
see note
Assessment / Plan
Assessment / Plan
CT chest
1. No evidence of pulmonary embolism.
2. Nondisplaced/minimally displaced fractures involving the anterior/anterolateral right second and third ribs and left second through seventh ribs.
3. Right pneumothorax with chest tube in place.
4. Findings suggesting probable aspiration pneumonia within the bilateral lungs as described.
CT head
No convincing acute intracranial process.
Probable chronic calcification at the M1/M2 junction, less likely dense MCA sign. Consider follow-up CT head in 2-3 hours and/or CTA head/neck, as clinically indicated.
1. PEA arrest
Respiratory arrest from aspiration
Suspected anoxic brain injury
- EMS report reviewed and patient was found on the floor with food in the mouth, patient PEG tube in apparently to be strict n.p.o.
- Patient was noted on hypoxia/respiratory arrest unknown shockable PEA rhythm
- ~25 minutes of resuscitation efforts were done with ROSC achieved
- Intubated during the resuscitation, significant food debris noted in trachea and pharynx by EMS
2. Anoxic brain injury
- Patient remains unresponsive off of sedation
- Pupils are minimally dilated
- Ongoing EEG monitoring
- Neurology evaluation requested for further assessment
3. Pneumothorax
- Right-sided pneumothorax noted on CT chest likely from chest compression
- Right-sided chest tube has been placed
4. Shock - resolved
Lactic acidosis
- Likely due to depressed cardiac function postcardiac arrest
- A-line in place
- Required vasopressor currently off of it
- Lactic acid have trended down
5. Ventilator dependent respiratory failure
-Ventilator management per pulmonology
6. Aspiration Pneumonia
- CT chest images reviewed and patient have mainly right-sided aspiration pneumonia/pneumonitis
- Maintained on empiric Unasyn for now
7. Type 2 diabetes mellitus
- On metformin in care home
- Hemoglobin A1c of 6
- Maintain on insulin Lantus/sliding scale protocol
8. Shock liver
-Liver enzymes minimally elevated, monitor
9. Troponin elevation
-Low concern of ACS. elevation in trop secondary to postcardiac arrest chest compression related
-echocardiogram pending
Hyperlipidemia
Wheelchair-bound state
Mood disorder
DVT PPX - Lovenox
Full code
Total critical care time 42 Mins . Total critical care time documented does not include time spent on separately billed procedures or the services of residents, students, nurses or physician assistants. I personally saw and examined the patient. I
have reviewed all diagnostic interpretations and treatment plans as written. I was present for the dobbins portions of any procedures performed and the inclusive time noted in any critical care statement. Critical care time includes patient management
by me, time spent at the patients bedside, time to review lab and imaging results, discussing patient care, documentation in the medical record, and time spent with the family or caregiver.
Anticipated Discharge: 24 - 48 hours
Subjective/Interval History
-
Date of Service: April 08, 2025
Patient remains intubated
Off of vasopressors
Off of sedation in the morning during the visit,
No reported seizure-like activity overnight
No other reported issues
Objective Data
-
Labs:
Laboratory Results
04/08/25
04:30
WBC 11.9 H
Hgb 12.8 L
Hct 38.8 L
Plt Count 149
Sodium 139
Potassium 4.6
Chloride 105
Carbon Dioxide 25
BUN 43 H
Creatinine 0.9
Glucose 165 H
Calcium 9.1
Total Bilirubin 0.5
AST 237 H
ALT 112 H
Alkaline Phosphatase 78
Vital Signs:
Vital Signs
Temp Pulse Resp BP Pulse Ox
96.4 F L 97 20 134/86 98
04/08/25 14:00 04/08/25 13:27 04/08/25 13:27 04/08/25 10:22 04/08/25 14:29
I&O
04/07/25 04/08/25 04/09/25
06:59 06:59 06:59
Intake Total 1124.3 / 1231.7 1054.7 / 1054.7
Output Total 982 / 1037 740 / 740
Balance 142.3 / 194.7 314.7 / 314.7
Review of Systems
-
Unable to obtain full review of systems at this time due to: Acuity
Physical Exam
-
General: Comfortable
HEENT: Negative Oxygen
Respiratory: Clear to Auscultation
Cardiac: Regular Rhythm and S1/S2; Negative Murmur or Rub
Musculoskeletal: No Edema
Neuro: Awake, Alert, Oriented, No Motor Deficits and Nonfocal/Grossly Intact
Psych: Calm
[2025-04-08 17:43] LABS: Glucose - Point of Care 213 mg/dl (70-99)
[2025-04-08] MEDS: NOVOLOG FLEXPEN-HIGH RESISTANCE 4 UNITS SC (17:45)
--- NOTE | 2025-04-08 21:27 | CON.NEURO4 ---
Consultation - Neurology 4
-
CONSULTING PHYSICIAN: Freddy Fox MD
REFERRING PHYSICIAN: Gilbert Morley MD
DICTATED BY: Freddy Fox MD
DATE/TIME OF REQUEST: 04/08/2025
DATE/TIME OF CONSULTATION: 04/08/2025
Reason for Consultation: Cardiac arrest
Assessment and Plan:
The patient is a 70 years old male who is wheelchair-bound who presented status post witnessed cardiac arrest at [facility]. The patient arrived in the emergency room intubated on norepinephrine with hypotension on arrival. The patient's
history was obtained from the patient's medical records. The patient is intubated and sedated. The pupillary light reflex, corneal reflex and gag reflex are absent. The prognosis appears to be poor.
EEG is being done.
History of Present Illness:
The patient is a 70 years old male who is wheelchair-bound who presented status post witnessed cardiac arrest at [facility]. The patient arrived in the emergency room intubated on norepinephrine with hypotension on arrival. The patient's
history was obtained from the patient's medical records.
Past Medical History: The patient has a past medical history of diabetes, COPD and he is status post PEG tube placement.
Review of Systems:
Unable to perform review of systems due to the acuity of the condition of the patient.
Neurologic Examination:
The patient is intubated and sedated.
The pupillary reflexes are absent bilaterally
The corneal reflexes are absent bilaterally.
There is no response to painful stimulus.
Medications
-
Active Medications
Generic Name Dose Route Start Last Admin
Trade Name Freq PRN Reason Stop Dose Admin
Albuterol/Ipratropium 3 ml 04/07/25 22:13
Ipratropium 0.5/Albuterol 3 Mg (3 Ml Ampul) INH
R Q4HPRN PRN
wheezing
Protocol
Albuterol/Ipratropium 3 ml 04/08/25 14:00 04/08/25 19:38
Ipratropium 0.5/Albuterol 3 Mg (3 Ml Ampul) INH 3 ml
R TID CORNELIA Administration
Protocol
Bisacodyl 10 mg 04/07/25 22:13
Bisacodyl 10 Mg Rectal Suppository RECTAL 05/05/25 22:12
[id number] PRN
constipation
Carboxymethylcellulose Sodium 1 drops 04/08/25 00:49 04/08/25 01:03
Carboxymethylcellulose Ophth Gel (Celluvisc) Droperette OPHTH 05/06/25 00:48 1 drops
QIDPRN PRN Administration
prevent corneal abrasions
Dextrose 12.5 grams 04/07/25 22:13
Dextrose 50% (0.5 Grams/Ml) 50 Ml Syringe IV 05/05/25 22:12
[id number] PRN
hypoglycemia
Protocol
Enoxaparin Sodium 40 mg 04/08/25 18:00
Enoxaparin Sodium 40 Mg/0.4 Ml Syringe SC 05/06/25 17:59
On Hold: 04/08/25 18:00 QPM CORNELIA
Famotidine 20 mg 04/08/25 08:00 04/08/25 07:35
Famotidine 20 Mg Tablet TUBE 05/06/25 07:59 Not Given
DAILY CORNELIA
Fentanyl Citrate 50 mcg 04/07/25 22:13
Fentanyl (50 Mcg/Ml) 100 Mcg/2 Ml Ampul IV 04/21/25 22:12
[id number] PRN
see protocol
Protocol
Glucagon 1 mg 04/07/25 22:13
Glucagon 1 Mg Vial IM 05/05/25 22:12
PRN PRN
hypoglycemia
Protocol
Ampicillin Sodium/Sulbactam 120 mls @ 240 mls/hr 04/08/25 00:00 04/08/25 17:41
Sodium 3 gm/ Sodium Chloride IV 120 mls
Q6H CORNELIA Administration
Fentanyl Citrate 1,000 mcg in 100 mls @ 0 mls/hr 04/07/25 22:13
Sublimaze IV
PER PROTOCOL CORNELIA
Protocol
Per Protocol
Lactated Ringer's 1,000 mls @ 100 mls/hr 04/07/25 22:13 04/08/25 17:41
Lr IV 1,000 mls
.Q10H CORNELIA Administration
Nicardipine/Sodium Chloride 40 mg in 200 mls @ 0 mls/hr 04/08/25 00:30 04/08/25 01:10
Cardene IV 200 mls
PER PROTOCOL CORNELIA Administration
Protocol
Per Protocol
Propofol 1,000,000 mcg in 100 mls @ 0 mls/hr 04/08/25 00:30 04/08/25 00:44
Diprivan IV 100 mls
PER PROTOCOL CORNELIA Administration
Protocol
Per Protocol
Acetaminophen 1,000 mg in 100 mls @ 400 mls/hr 04/08/25 04:00 04/08/25 16:09
Ofirmev IV 04/09/25 04:14 100 mls
Q6H CORNELIA Administration
Protocol
Insulin Glargine 8 units/ 0.08 mls @ 0 mls/hr 04/08/25 22:00
Device SC 05/06/25 21:59
HS CORNELIA
As Directed
Insulin Aspart 0 units 04/08/25 06:00 04/08/25 17:45
Insulin Aspart High Resistance 300 Units/3 Ml Pen.Injctr SC 05/06/25 05:59 4 units
Q6 CORNELIA Administration
Protocol
Levothyroxine Sodium 50 mcg 04/08/25 18:00 04/08/25 17:41
Levothyroxine 50 Mcg Tablet TUBE 05/06/25 17:59 Not Given
QPM CORNELIA
Ondansetron HCl 4 mg 04/07/25 22:13
Ondansetron 4 Mg/2 Ml Vial IV 05/05/25 22:12
Q6HPRN PRN
nausea and vomiting
Pantoprazole Sodium 40 mg 04/08/25 08:00 04/08/25 19:51
Pantoprazole Sodium 40 Mg/10 Ml Vial IV 05/06/25 07:59 40 mg
BID CORNELIA Administration
Polyethylene Glycol 17 grams 04/08/25 08:00 04/08/25 07:35
Polyethylene Glycol Powder 17 Grams Packet TUBE 05/06/25 07:59 Not Given
DAILY CORNELIA
Polyethylene Glycol 17 grams 04/07/25 22:13
Polyethylene Glycol Powder 17 Grams Packet TUBE 05/05/25 22:12
DAILYPRN PRN
constipation
Senna/Docusate Sodium 1 tablet 04/07/25 22:13
Docusate W/Senna (Galina-Colace) Tablet PO 05/05/25 22:12
BIDPRN PRN
constipation
Sodium Chloride 0 flush 04/07/25 23:00
Sodium Chloride 0.9% (Flush) Syringe IV 05/05/25 22:59
PER PROTOCOL CORNELIA
Sodium Chloride 10 ml 04/08/25 08:00 04/08/25 19:51
Sodium Chloride 0.9% (Preservative Free) 10 Ml Vial IV 05/06/25 07:59 10 ml
BID CORNELIA Administration
Home Medications
�Medication �Instructions �Recorded
Metamucil 4 In 1 Fiber Packets 1 packet feeding tube DAILYPRN PRN 04/07/25
constipation
acetaminophen 325 mg tablet 650 mg feeding tube Q4HPRN PRN 04/07/25
(Tylenol) MILD PAIN
albuterol sulfate 90 mcg/actuation 2 puff inhalation R Q4HPRN PRN sob 04/07/25
aerosol inhaler
aluminum-mag hydroxide-simethicone 30 ml feeding tube Q6HPRN PRN GERD 04/07/25
400 mg-400 mg-40 mg/5 mL oral susp
(Maalox Maximum Strength)
atorvastatin 40 mg tablet (Lipitor) 40 mg feeding tube HS High 04/07/25
Cholesterol
balsam abimael-castor oil topical 1 applic topical BID BLLE UE 04/07/25
ointment (Venelex topical ointment)
bisacodyl 10 mg rectal suppository 10 mg OH DAILYPRN PRN if no bm 04/07/25
(Dulcolax (bisacodyl)) aftr mom
budesonide 160 mcg-glycopyr 9 2 inh inhalation R BID sob 04/07/25
mcg-formot 4.8 mcg/actuation HFA
inhaler (Breztri Aerosphere)
cephalexin 250 mg/5 mL oral 500 mg feeding tube QID Infection 04/07/25
suspension
cholecalciferol (vitamin D3) 10 50 mcg PO DAILY G-TUBE 04/07/25
mcg/5 mL (400 unit/5 mL) oral
liquid
cyanocobalamin (vitamin B-12) 2,500 mcg feeding tube DAILY 04/07/25
2,500 mcg tablet Supplement
famotidine 20 mg tablet (Pepcid) 20 mg feeding tube DAILY gerd 04/07/25
ferrous sulfate 220 mg (44 mg 330 mg feeding tube BID Supplement 04/07/25
iron)/5 mL oral solution
guaifenesin 100 mg/5 mL oral 100 mg feeding tube Q4HPRN PRN 04/07/25
liquid (Reyna-Tussin) COUGH
insulin aspart U-100 100 unit/mL 1 sliding scale dose SC ACHS 04/07/25
(3 mL) subcutaneous pen (Novolog Diabetes
FlexPen U-100 Insulin aspart)
insulin degludec 100 unit/mL (3 15 unit SC HS Diabetes 04/07/25
mL) subcutaneous pen
levothyroxine 50 mcg tablet 50 mcg feeding tube QPM Thyroid 04/07/25
(Synthroid)
lidocaine 4 % topical patch 1 patch topical DAILY BACK 04/07/25
loperamide 2 mg capsule 2 mg feeding tube Q6HPRN PRN 04/07/25
diarrhea
magnesium hydroxide 400 mg/5 mL 2,400 mg feeding tube DAILYPRN PRN 04/07/25
oral suspension (Milk of Magnesia) if no bm aftr 3rd day
magnesium oxide 400 mg feeding tube BID Supplement 04/07/25
melatonin 3 mg tablet 3 mg feeding tube HS Sleep 04/07/25
metformin 1,000 mg tablet 1,000 mg feeding tube BID Diabetes 04/07/25
mupirocin 2 % topical ointment 1 applic topical DAILYPRN PRN NOSE 04/07/25
LACERATION
mupirocin 2 % topical ointment 1 applic topical Q48H LACERATION 04/07/25
nutrition tx glu 1 ea feeding tube QPM feeding 04/07/25
intol,lac-free,soy-fiber 0.06
gram-1.2 kcal/mL liquid (Glucerna
1.2 Kwan)
olanzapine 10 mg tablet 12.5 mg feeding tube HS Mental 04/07/25
Health/Anxiety
phenylephrine 0.25 %-mineral oil 1 applic OH DAILYPRN PRN 04/07/25
14 %-petrolatm 74.9 % rectal hemmorriods
ointment (Preparation H)
polyvinyl alcohol-povidone (PF) 2 drp BOTH EYES BIDPRN PRN DRYNESS 04/07/25
1.4 %-0.6 % eye drops in a
dropperette (Refresh Classic (PF))
povidone-iodine 10 % topical 1 applic topical DAILYPRN PRN LEFT 04/07/25
solution (Betadine) GOMEZ
povidone-iodine 10 % topical 1 applic topical QPM LEFT GOMEZ 04/07/25
solution (Betadine)
sodium chloride 1 gram tablet 2,000 mg PO BID Supplement 04/07/25
sodium phosphates 19 gram-7 118 ml OH DAILYPRN PRN if no bm 04/07/25
gram/118 mL enema (Fleet Enema) aftr dulcolax
therapeutic multivitamin 5 ml feeding tube QPM Supplement 04/07/25
valproic acid (as sodium salt) 250 500 mg feeding tube TID 04/07/25
mg/5 mL oral solution Neurological Condition
witch catina 20 % topical pads 1 pad topical Q2HPRN PRN hemmoriods 04/07/25
Vital Signs and Labs
-
Vital Signs and Labs:
Vital Signs
Temp Pulse Resp BP Pulse Ox
37.1 C 109 20 106/73 96
04/08/25 19:44 04/08/25 20:00 04/08/25 20:00 04/08/25 20:00 04/08/25 20:00
Lab Results
04/08/25 04:30
04/08/25 04:30
PT 15.5 Sec (11.4-14.6) H 04/07/25 19:10
INR 1.20 04/07/25 19:10
APTT 34.9 Sec (23.4-35.0) 04/07/25 19:10
Sodium 139 mmol/L (135-145) 04/08/25 04:30
Potassium 4.6 mmol/L (3.5-5.1) 04/08/25 04:30
BUN 43 mg/dl (9-20) H 04/08/25 04:30
Glucose 165 mg/dl (70-99) H 04/08/25 04:30
Calcium 9.1 mg/dl (8.4-10.2) 04/08/25 04:30
[2025-04-08] MEDS: LANTUS 0.08 UNITS SC (22:48)
[2025-04-08 22:52] LABS: Glucose - Point of Care 125 mg/dl (70-99)
[2025-04-09] VITALS (13 sets, daily range): BP systolic 80–143; BP diastolic 70–98; BMI 26.1
--- NOTE | 2025-04-09 02:30 | PTCARENOTE ---
Cooling blanket placed back on due to fever of 102
[2025-04-09] MEDS: LR 1000 IV ×2 (03:27→17:10)
[2025-04-09] MEDS: OFIRMEV 100 IV (05:00)
[2025-04-09] MEDS: UNASYN IV ×3 (05:13→17:42)
[2025-04-09 05:47] LABS: ALT (SGPT) 72 U/L (0-50); AST (SGOT) 241 U/L (17-59); Albumin 3.0 g/dl (3.5-5.0); Alkaline Phosphatase 78 U/L (38-126); Blood Urea Nitrogen 35 mg/dl (9-20); Calcium 9.0 mg/dl (8.4-10.2); Carbon Dioxide 26 mmol/L (22-30); Chloride 106 mmol/L (98-107); Estimated Creatinine Clearance 83 ml/min; Glucose 144 mg/dl (70-99); Potassium 4.0 mmol/L (3.5-5.1); Sodium 137 mmol/L (135-145); Total Protein 6.3 g/dl (6.3-8.2); eGFR > 60.00
[2025-04-09] MEDS: NOVOLOG FLEXPEN-HIGH RESISTANCE 1 UNITS SC ×2 (05:57→17:42)
[2025-04-09] MEDS: DUONEB 3 ML INH ×3 (07:24→19:53)
[2025-04-09] MEDS: PROTONIX IV 40 MG IV ×2 (08:04→18:56)
[2025-04-09] MEDS: NSS (PRESERVATIVE FREE) 10 ML IV ×2 (08:04→18:56)
[2025-04-09 08:06] LABS: Hematocrit 37.7 % (39.0-52.0); Hemoglobin 12.3 g/dL (13.0-18.0); Mean Corp Hgb Conc. 32.6 g/dL (33.0-37.0); Mean Corpuscular Volume 101.3 fL (80.0-94.0); Platelet Count 121 10^3/uL (130-400); Red Cell Dist. Width 14.4 % (11.5-14.5)
--- NOTE | 2025-04-09 08:31 | W.PN.INTV ---
Today's Communication / Plan
Recommendations
.
Assessment
-
Moustapha Brown is a 70M wheelchair bound patient who is s/p an unknown procedure (history limited), wheelchair bound, and NPO who had a witnessed cardiac arrest at CT/rehab requiring 26 minutes of ACLS with chest compressions and multiple rounds of
epinephrine, as well as intubation with large amounts of food found in the airway. He continued to be obtunded through the course of his ED evaluation and ICU admission. Additionally, he is s/p R chest tube for moderate right PTX and has evidence of
probable aspiration pneumonia on chest imaging.
04/09: Continues to be obtunded 2/2 anoxic brain injury s/p cardiac arrest after aspirating, complicated by PTX and aspiration pneumonia with no change in neurologic status overnight, continued coffee ground emesis, and rhoncorous breath sounds
1. Anoxic Brain Injury s/p cardiac arrest
- Continue targeted temperature management for total of 72 hrs
- Patient presented with Tmax 102; Goal temp normothermia after 24 hours
- BP currently maintained off of pressors and cardene drip; goal normotension
- Decrease maintenance fluid, LR @75ml/hr
- Currently intubated; maintain SaO2 92-98%, PaCO2 35-45
- Continue to monitor neurologic status, ordered neuro consult
- Repeat CT Head
- Monitor mejia outputs
2. Aspiration Pneumonia
- Continue Unasyn
- Monitor temperature curves, WBCs
- In setting of elevated temps, will order lactate and Bcx x2
3. Right sided Pneumothorax
- Status post chest tube
- Monitor drainage; 7cc so far
- Monitor for air leak
4. Suspected Upper GI Bleed
- Coffee Ground Material in NG suction
- Continue to monitor outputs
- Hold chemical DVT PPx, continue SCDs
- Avoid antiplatelets
- IV PPI
5. Elevated troponin
- Likely in the setting of prolonged cardiac arrest
- Troponin trended down
Subjective Dataa
Subjective Data
Date of Service:
Date of Service: April 09, 2025
Chief Complaint: [employer] Follow Up
Subjective:
70M w/ anoxic brain injury s/p cardiac arrest after aspirating complicated by PTX and aspiration pneumonia. Overnight, there is no change in neurologic status and patient continues to be without cough, gag, or pupillary light reflex and no reponse
to painful stimuli. Overnight, had a couple of spikes in temperature, necessitating reapplication of cooling blankets. Patient continues to have drainage of coffee ground fluid from nasogastric suction.
Objective Data
Data Reviewed
Vital Signs / I&O / Oxygen:
Vital Signs
Temp Pulse Resp BP Pulse Ox
99.2 F 103 20 102/77 100
04/09/25 07:00 04/09/25 07:27 04/09/25 07:27 04/09/25 04:00 04/09/25 07:27
Intake and Output
04/08/25 04/09/25 04/10/25
06:59 06:59 06:59
Intake Total 1124.3 / 1231.7 3354.7 / 3454.7 100 / 100
Output Total 982 / 1037 1700 / 1745 45 / 45
Balance 142.3 / 194.7 1654.7 / 1709.7 55 / 55
SaO2 [A/C] 96
SaO2 100
Nasal Cannula flow liters per 99
minute
Physical Exam
General: T Max (102; currently 97.6 on cooling blanket) and Other (no response to painful stimuli)
HEENT: Normocephalic, Anicteric and Other (pupils are dilated and fixed; no gag or cough reflex)
Cardiovascular: S1-S2 and Other (tachycardic, no murmurs)
Respiratory: ET Tube (in place; Vent @ RR20, TV500, PEEP5, FiO2 @ 40%) and Other
GI: Soft, Non Distended, NG Tube (draining coffee ground material) and Other (PEG tube in place)
Neurology: Other (areflexia as above)
Skin: Other (cool to touch in the extremities, some mottling of the skin around the knees and forearms bilaterally)
Labs/Micro/Reports
Lab Data
04/09/25 05:05
04/09/25 05:05
Microbiology
04/08/25 05:38 Nose MRSA Screen - Final
No Methicillin Resistant Staphylococcus aureus isolated.
--- NOTE | 2025-04-09 09:00 | PTCARENOTE ---
Assumed care of patient at 0700. Assessment and vital sign trends in flowsheets. Patient remains unresponsive on vent. Corneal, cough and gag reflexes absent, No withdrawal to painful stimuli, occassional posturing movements in B/L UE's. Plan of
care discussed during ICU rounds. Care on going
--- NOTE | 2025-04-09 11:53 | W.PN.HOSP.TC ---
Today's Communication/Plan
-
Continue current care
Continue to biotic
Follow-up CT brain tomorrow
Assessment / Plan
Assessment / Plan
CT chest
1. No evidence of pulmonary embolism.
2. Nondisplaced/minimally displaced fractures involving the anterior/anterolateral right second and third ribs and left second through seventh ribs.
3. Right pneumothorax with chest tube in place.
4. Findings suggesting probable aspiration pneumonia within the bilateral lungs as described.
CT head
No convincing acute intracranial process.
Probable chronic calcification at the M1/M2 junction, less likely dense MCA sign. Consider follow-up CT head in 2-3 hours and/or CTA head/neck, as clinically indicated.
1. PEA arrest
Respiratory arrest from aspiration
Suspected anoxic brain injury
- EMS report reviewed and patient was found on the floor with food in the mouth, patient PEG tube in apparently to be strict n.p.o.
- Patient was noted on hypoxia/respiratory arrest unknown shockable PEA rhythm
- ~25 minutes of resuscitation efforts were done with ROSC achieved
- Intubated during the resuscitation, significant food debris noted in trachea and pharynx by EMS
2. Anoxic brain injury
- Patient remains unresponsive off of sedation
- No seizure activity on EEG
- Neurology following and help appreciated
- Plan to get CT head tomorrow
3. Pneumothorax
- Right-sided pneumothorax noted on CT chest likely from chest compression
- Right-sided chest tube has been placed
- Follow-up chest x-ray showing decrease in the size of pneumothorax today
4. Shock - resolved
Lactic acidosis
- Likely due to depressed cardiac function postcardiac arrest
- A-line in place
- Required vasopressor after being admitted from ER.
- Lactic acid have trended down
5. Ventilator dependent respiratory failure
-Ventilator management per pulmonology
6. Aspiration Pneumonia
- CT chest images reviewed and patient have mainly right-sided aspiration pneumonia/pneumonitis
- Maintained on empiric Unasyn for now
- Patient spiking high-grade fever over the night, suspecting central thermal dysregulation
7. Type 2 diabetes mellitus
- On metformin in detention
- Hemoglobin A1c of 6
- Maintain on insulin Lantus/sliding scale protocol
8. Shock liver
-Liver enzymes minimally elevated, monitor
9. Troponin elevation
-Low concern of ACS. elevation in trop secondary to postcardiac arrest chest compression related
-echocardiogram was a poor study and function could not be assessed
Hyperlipidemia
Wheelchair-bound state
Mood disorder
DVT PPX - Lovenox
Full code
Patient of legal guardian Ms. Betty Bright, contacted the office and Mr. CORTEZ is out of office for next few days, discussed with case management Ms Meek who is in charge of guardianship related work at this point for Ms Bright. I have updated
her and she will in turn talk to Ms Bright about patient current prognosis. I have discussed that patient may require to be switched to comfort care in next 24 hours if no meaningful neurological recovery happens
Total critical care time 40 Mins . Total critical care time documented does not include time spent on separately billed procedures or the services of residents, students, nurses or physician assistants. I personally saw and examined the patient. I
have reviewed all diagnostic interpretations and treatment plans as written. I was present for the dobbins portions of any procedures performed and the inclusive time noted in any critical care statement. Critical care time includes patient management
by me, time spent at the patients bedside, time to review lab and imaging results, discussing patient care, documentation in the medical record, and time spent with the family or caregiver.
Anticipated Discharge: 24 - 48 hours
Subjective/Interval History
-
Date of Service: April 09, 2025
Remains intubated on ventilator
On fentanyl for pain control only, no meaningful neurological recovery
Has been starting to spike high-grade fever in the night
Remains off of vasopressors
Objective Data
-
Labs:
Laboratory Results
04/09/25
05:05
WBC 8.9
Hgb 12.3 L
Hct 37.7 L
Plt Count 121 L
Sodium 137
Potassium 4.0
Chloride 106
Carbon Dioxide 26
BUN 35 H
Creatinine 0.9
Glucose 144 H
Calcium 9.0
Total Bilirubin 0.9
AST 241 H
ALT 72 H
Alkaline Phosphatase 78
Vital Signs:
Vital Signs
Temp Pulse Resp BP Pulse Ox
95.8 F L 101 20 109/87 97
04/09/25 11:14 04/09/25 10:00 04/09/25 10:00 04/09/25 08:41 04/09/25 09:23
I&O
04/08/25 04/09/25 04/10/25
06:59 06:59 06:59
Intake Total 1124.3 / 1231.7 3354.7 / 3454.7 375 / 375
Output Total 982 / 1037 1700 / 1745 255 / 255
Balance 142.3 / 194.7 1654.7 / 1709.7 120 / 120
Review of Systems
-
Unable to obtain full review of systems at this time due to: Acuity and Patient Intubation
Physical Exam
-
HEENT: Other (on ventilator, NGT in place)
Respiratory: Rhonchi
Cardiac: Regular Rhythm and S1/S2; Negative Murmur or Rub
GI: Soft and Nondistended
Musculoskeletal: Edema, Right Lower Extrem and Edema, Left Lower Extrem
Skin: Other (Livedo reticularis and bilateral lower extremity up to knee level)
Neuro: Other (bilateral minimal dilated pupil); Negative Awake, Alert or Oriented
[2025-04-09] MEDS: REFRESH EYE DROPS (PF) 1 DROPS BOTH EYES ×2 (11:59→18:56)
[2025-04-09] MEDS: NOVOLOG FLEXPEN-HIGH RESISTANCE 2 UNITS SC (12:04)
[2025-04-09 12:05] LABS: Glucose - Point of Care 150 mg/dl (70-99)
--- NOTE | 2025-04-09 12:56 | VATNOTE ---
VAT rounds: biopatch noted to be saturated with blood at time of assessment, discussed with PCN who will redress femoral TLC at this time. Supplies provided by this RN.
--- NOTE | 2025-04-09 14:46 | CM ---
Anoxic brain injury s/p cardiac arrest. Intubated, aspiration PNA, R pneumothorax. Update to [facility]. Discharge POC: TBD.
--- NOTE | 2025-04-09 15:31 | W.PN.NEURO.1 ---
Addendum entered and electronically signed by Freddy Fox MD 04/09/25 18:20:
The patient was seen and examined by me today on 04/09/2025. I have also discussed the assessment and the management plan with nurse practitioner Dayna Ospina and I agree with her findings and the management plan. Given below is my impression.
The EEG was done that did not show evidence of status epilepticus.
The patient's neurologic examination has not changed since yesterday.
The patient was off sedation at the time when he was seen.
The patient's prognosis remains poor.
Will sign off. Please call if you have any question.
Original Note:
Today's Communication / Plan
-
.
Neuro Assessment/Plan
Assessment
The patient is a 70 year old male who is wheelchair-bound who presented status post witnessed cardiac arrest at [facility] on 04/07/25.
-CT head 04/07/25: No convincing acute intracranial process. Probable chronic calcification at the M1/M2 junction, less likely dense MCA sign. Consider follow-up CT head in 2-3 hours and/or CTA head/neck, as clinically indicated.
I. S/P cardiac arrest. Neurological examination remains poor off of sedation. CT head imaging per Neurology view lacks chacon/white matter differentiation. EEG with Ceribell monitor was negative for seizure. Prognosis remains poor.
Plan
-Repeat CT head tomorrow 04/10/25.
-Goals of care discussion with family.
Subjective/Objective
Subjective Data
Date of Service: April 09, 2025
No change overnight. No sedation, absent cough/gag/corneals.
Objective Data
Vital Signs
Temp Pulse Resp BP Pulse Ox
95.7 F L 96 20 143/98 100
04/09/25 15:10 04/09/25 13:21 04/09/25 13:21 04/09/25 12:00 04/09/25 15:24
Lab Results
04/09/25 05:05
04/09/25 05:05
PT 15.5 Sec (11.4-14.6) H 04/07/25 19:10
INR 1.20 04/07/25 19:10
APTT 34.9 Sec (23.4-35.0) 04/07/25 19:10
Sodium 137 mmol/L (135-145) 04/09/25 05:05
Potassium 4.0 mmol/L (3.5-5.1) 04/09/25 05:05
BUN 35 mg/dl (9-20) H 04/09/25 05:05
Glucose 144 mg/dl (70-99) H 04/09/25 05:05
Calcium 9.0 mg/dl (8.4-10.2) 04/09/25 05:05
Patient Allergies
adhesive tape Allergy (Verified 04/07/25 20:25)
Unknown
bee venom protein (honey bee) Allergy (Verified 04/07/25 20:25)
Unknown
bupropion (From Wellbutrin) Allergy (Verified 04/07/25 20:25)
Unknown
celecoxib (From Celebrex) Allergy (Verified 04/07/25 20:25)
Unknown
trazodone Allergy (Verified 04/07/25 20:25)
Unknown
Review of Systems
-
Unable to obtain full review of systems at this time due to: Coma
Physical Exam
Extended Neurological Exam
Attention Span & Concentration: Unresponsive to Physical Stimuli
Memory: Unable to Assess
Tremor: Negative Hand Tremor Absent or Head Tremor Absent
Involuntary Movement: None
Speech: Unable to Assess
Cranial Nerve II: Left Eye: Pupillary Size Unremarkable, Unreactive and Unable to Assess Visual Danielle
Cranial Nerve II: Right Eye: Pupillary Size Unremarkable, Unreactive and Unable to Assess Visual Danielle
Cranial Nerves III, IV, : Extraocular Movement: Unable to Assess (gaze is midline)
Cranial Nerve V: Facial Sensation: Unable to Assess
Cranial Nerve VII: Facial Symmetry: Unable to Assess
Cranial Nerve VIII: Hearing: Unable to Assess
Cranial Nerves IX, X: Palate Movement: Unable to Assess
Cranial Nerve XI: Shoulder Shrug: Unable to Assess
Cranial Nerve XII: Tongue Protusion: Unable to Assess
Muscle Strength, Overall: Other (0/5 to pain in all extremities. Occasional extension of bilateral upper extremities to stimulation)
Pronator Drift: Unable to Assess
Coordination: Unable to Assess
Data Reviewed
-
CT Head: Report Reviewed and Image Reviewed
EEG: Report Reviewed
Labs: Report Reviewed
Reviewed with: Physician and Nurse
Medications
-
Active Medications
Generic Name Dose Route Start Last Admin
Trade Name Freq PRN Reason Stop Dose Admin
Albuterol/Ipratropium 3 ml 04/07/25 22:13
Ipratropium 0.5/Albuterol 3 Mg (3 Ml Ampul) INH
R Q4HPRN PRN
wheezing
Protocol
Albuterol/Ipratropium 3 ml 04/08/25 14:00 04/09/25 13:20
Ipratropium 0.5/Albuterol 3 Mg (3 Ml Ampul) INH 3 ml
R TID CORNELIA Administration
Protocol
Artificial Tears 1 drops 04/09/25 11:00 04/09/25 11:59
Artificial Tears Pf (Refresh) 10 Drop Droperette BOTH EYES 05/07/25 10:59 1 drops
BID CORNELIA Administration
Bisacodyl 10 mg 04/07/25 22:13
Bisacodyl 10 Mg Rectal Suppository RECTAL 05/05/25 22:12
[id number] PRN
constipation
Carboxymethylcellulose Sodium 1 drops 04/08/25 00:49 04/08/25 01:03
Carboxymethylcellulose Ophth Gel (Celluvisc) Droperette OPHTH 05/06/25 00:48 1 drops
QIDPRN PRN Administration
prevent corneal abrasions
Dextrose 12.5 grams 04/07/25 22:13
Dextrose 50% (0.5 Grams/Ml) 50 Ml Syringe IV 05/05/25 22:12
[id number] PRN
hypoglycemia
Protocol
Enoxaparin Sodium 40 mg 04/08/25 18:00
Enoxaparin Sodium 40 Mg/0.4 Ml Syringe SC 05/06/25 17:59
On Hold: 04/08/25 18:00 QPM CORNELIA
Famotidine 20 mg 04/08/25 08:00 04/09/25 08:04
Famotidine 20 Mg Tablet TUBE 05/06/25 07:59 Not Given
On Hold: 04/09/25 09:13 DAILY CORNELIA
Comment: NPO no meds 2/2
coffee-ground PEG output
Fentanyl Citrate 50 mcg 04/07/25 22:13
Fentanyl (50 Mcg/Ml) 100 Mcg/2 Ml Ampul IV 04/21/25 22:12
[id number] PRN
see protocol
Protocol
Glucagon 1 mg 04/07/25 22:13
Glucagon 1 Mg Vial IM 05/05/25 22:12
PRN PRN
hypoglycemia
Protocol
Ampicillin Sodium/Sulbactam 120 mls @ 240 mls/hr 04/08/25 00:00 04/09/25 11:59
Sodium 3 gm/ Sodium Chloride IV 120 mls
Q6H CORNELIA Administration
Lactated Ringer's 1,000 mls @ 75 mls/hr 04/07/25 22:13 04/09/25 03:27
Lr IV 1,000 mls
[id number] CORNELIA Administration
Insulin Glargine 8 units/ 0.08 mls @ 0 mls/hr 04/08/25 22:00 04/08/25 22:48
Device SC 05/06/25 21:59 0.08 mls
HS CORNELIA Administration
As Directed
Insulin Aspart 0 units 04/08/25 06:00 04/09/25 12:04
Insulin Aspart High Resistance 300 Units/3 Ml Pen.Injctr SC 05/06/25 05:59 2 units
Q6 CORNELIA Administration
Protocol
Levothyroxine Sodium 50 mcg 04/08/25 18:00 04/08/25 17:41
Levothyroxine 50 Mcg Tablet TUBE 05/06/25 17:59 Not Given
On Hold: 04/09/25 09:13 QPM CORNELIA
Comment: NPO no meds 2/2
coffee-ground PEG output
Ondansetron HCl 4 mg 04/07/25 22:13
Ondansetron 4 Mg/2 Ml Vial IV 05/05/25 22:12
Q6HPRN PRN
nausea and vomiting
Pantoprazole Sodium 40 mg 04/08/25 08:00 04/09/25 08:04
Pantoprazole Sodium 40 Mg/10 Ml Vial IV 05/06/25 07:59 40 mg
BID CORNELIA Administration
Polyethylene Glycol 17 grams 04/08/25 08:00 04/09/25 08:04
Polyethylene Glycol Powder 17 Grams Packet TUBE 05/06/25 07:59 Not Given
On Hold: 04/09/25 09:13 DAILY CORNELIA
Comment: NPO no meds 2/2
coffee-ground PEG output
Polyethylene Glycol 17 grams 04/07/25 22:13
Polyethylene Glycol Powder 17 Grams Packet TUBE 05/05/25 22:12
On Hold: 04/09/25 09:13 DAILYPRN PRN
Comment: NPO no meds 2/2 constipation
coffee-ground PEG output
Senna/Docusate Sodium 1 tablet 04/09/25 09:11
Docusate W/Senna (Galina-Colace) Tablet TUBE 05/05/25 22:12
On Hold: 04/09/25 09:13 BIDPRN PRN
Comment: NPO no meds 2/2 constipation
coffee-ground PEG output
Sodium Chloride 0 flush 04/07/25 23:00
Sodium Chloride 0.9% (Flush) Syringe IV 05/05/25 22:59
PER PROTOCOL CORNELIA
Sodium Chloride 10 ml 04/08/25 08:00 04/09/25 08:04
Sodium Chloride 0.9% (Preservative Free) 10 Ml Vial IV 05/06/25 07:59 10 ml
BID CORNELIA Administration
Home Medications
�Medication �Instructions �Recorded
Metamucil 4 In 1 Fiber Packets 1 packet feeding tube DAILYPRN PRN 04/07/25
constipation
acetaminophen 325 mg tablet 650 mg feeding tube Q4HPRN PRN 04/07/25
(Tylenol) MILD PAIN
albuterol sulfate 90 mcg/actuation 2 puff inhalation R Q4HPRN PRN sob 04/07/25
aerosol inhaler
aluminum-mag hydroxide-simethicone 30 ml feeding tube Q6HPRN PRN GERD 04/07/25
400 mg-400 mg-40 mg/5 mL oral susp
(Maalox Maximum Strength)
atorvastatin 40 mg tablet (Lipitor) 40 mg feeding tube HS High 04/07/25
Cholesterol
balsam abimael-castor oil topical 1 applic topical BID BLLE UE 04/07/25
ointment (Venelex topical ointment)
bisacodyl 10 mg rectal suppository 10 mg TX DAILYPRN PRN if no bm 04/07/25
(Dulcolax (bisacodyl)) aftr mom
budesonide 160 mcg-glycopyr 9 2 inh inhalation R BID sob 04/07/25
mcg-formot 4.8 mcg/actuation HFA
inhaler (Breztri Aerosphere)
cephalexin 250 mg/5 mL oral 500 mg feeding tube QID Infection 04/07/25
suspension
cholecalciferol (vitamin D3) 10 50 mcg PO DAILY G-TUBE 04/07/25
mcg/5 mL (400 unit/5 mL) oral
liquid
cyanocobalamin (vitamin B-12) 2,500 mcg feeding tube DAILY 04/07/25
2,500 mcg tablet Supplement
famotidine 20 mg tablet (Pepcid) 20 mg feeding tube DAILY gerd 04/07/25
ferrous sulfate 220 mg (44 mg 330 mg feeding tube BID Supplement 04/07/25
iron)/5 mL oral solution
guaifenesin 100 mg/5 mL oral 100 mg feeding tube Q4HPRN PRN 04/07/25
liquid (Reyna-Tussin) COUGH
insulin aspart U-100 100 unit/mL 1 sliding scale dose SC ACHS 04/07/25
(3 mL) subcutaneous pen (Novolog Diabetes
FlexPen U-100 Insulin aspart)
insulin degludec 100 unit/mL (3 15 unit SC HS Diabetes 04/07/25
mL) subcutaneous pen
levothyroxine 50 mcg tablet 50 mcg feeding tube QPM Thyroid 04/07/25
(Synthroid)
lidocaine 4 % topical patch 1 patch topical DAILY BACK 04/07/25
loperamide 2 mg capsule 2 mg feeding tube Q6HPRN PRN 04/07/25
diarrhea
magnesium hydroxide 400 mg/5 mL 2,400 mg feeding tube DAILYPRN PRN 04/07/25
oral suspension (Milk of Magnesia) if no bm aftr 3rd day
magnesium oxide 400 mg feeding tube BID Supplement 04/07/25
melatonin 3 mg tablet 3 mg feeding tube HS Sleep 04/07/25
metformin 1,000 mg tablet 1,000 mg feeding tube BID Diabetes 04/07/25
mupirocin 2 % topical ointment 1 applic topical DAILYPRN PRN NOSE 04/07/25
LACERATION
mupirocin 2 % topical ointment 1 applic topical Q48H LACERATION 04/07/25
nutrition tx glu 1 ea feeding tube QPM feeding 04/07/25
intol,lac-free,soy-fiber 0.06
gram-1.2 kcal/mL liquid (Glucerna
1.2 Kwan)
olanzapine 10 mg tablet 12.5 mg feeding tube HS Mental 04/07/25
Health/Anxiety
phenylephrine 0.25 %-mineral oil 1 applic TX DAILYPRN PRN 04/07/25
14 %-petrolatm 74.9 % rectal hemmorriods
ointment (Preparation H)
polyvinyl alcohol-povidone (PF) 2 drp BOTH EYES BIDPRN PRN DRYNESS 04/07/25
1.4 %-0.6 % eye drops in a
dropperette (Refresh Classic (PF))
povidone-iodine 10 % topical 1 applic topical DAILYPRN PRN LEFT 04/07/25
solution (Betadine) GOMEZ
povidone-iodine 10 % topical 1 applic topical QPM LEFT GOMEZ 04/07/25
solution (Betadine)
sodium chloride 1 gram tablet 2,000 mg PO BID Supplement 04/07/25
sodium phosphates 19 gram-7 118 ml TX DAILYPRN PRN if no bm 04/07/25
gram/118 mL enema (Fleet Enema) aftr dulcolax
therapeutic multivitamin 5 ml feeding tube QPM Supplement 04/07/25
valproic acid (as sodium salt) 250 500 mg feeding tube TID 04/07/25
mg/5 mL oral solution Neurological Condition
witch catina 20 % topical pads 1 pad topical Q2HPRN PRN hemmoriods 04/07/25
--- NOTE | 2025-04-09 16:24 | W.RAPID.EEG ---
Rapid EEG
-
Procedure Date: 04/08/25
Results:
Impressions:
No evidence of status epilepticus
Diagnostic Recording Time: 02:48:36 (169 minutes)
Recording 1:
Start Time: Apr 08, 2025 15:13 PM End Time: Apr 08, 2025 18:01 PM
Recording Technique: This EEG was obtained using a 10 lead, 8 channel system positioned circumferentially without any parasagittal coverage (rapid EEG).Computer selected EEG is reviewed as well as background features and all clinically significant
events. Clarity algorithm utilized and implemented to provide analysis of underlying activity and seizure detection used to facilitate reading. ICD-10 Code ZP70D46
Clinical History: JOHANN ARENAS is a 70 year old Cardiac Arrest patient undergoing EEG to screen for non-convulsive status epilepticus.
Disclaimer: EEG findings should be interpreted in the context of clinical history and other tests. A normal EEG does not rule out epilepsy or other conditions, and an abnormal EEG is not diagnostic on its own. Technical factors may affect
interpretation. Clinical context is required.
[2025-04-09 17:42] LABS: Glucose - Point of Care 147 mg/dl (70-99)
--- NOTE | 2025-04-09 20:30 | PTCARENOTE ---
Pt continues to have absent corneal and gag reflexes. Pt exhibits decerebrate posturing when turning and/or physical manipulation of body. [facility] following status of pt. VITA updated by this RN.
[2025-04-09 22:18] LABS: Glucose - Point of Care 142 mg/dl (70-99)
[2025-04-09] MEDS: LANTUS 0.08 UNITS SC (22:41)
[2025-04-09 23:09] LABS: Glucose - Point of Care 167 mg/dl (70-99)
[2025-04-10] VITALS (7 sets, daily range): BP systolic 91–136; BP diastolic 68–86; BMI 26.5
[2025-04-10] MEDS: NOVOLOG FLEXPEN-HIGH RESISTANCE 2 UNITS SC (00:12)
[2025-04-10] MEDS: UNASYN IV ×4 (00:13→17:57)
[2025-04-10 03:55] LABS: Hematocrit 31.7 % (39.0-52.0); Hemoglobin 10.8 g/dL (13.0-18.0); Mean Corp Hgb Conc. 34.1 g/dL (33.0-37.0); Mean Corpuscular Volume 95.5 fL (80.0-94.0); Platelet Count 111 10^3/uL (130-400); Red Cell Dist. Width 14.4 % (11.5-14.5)
--- NOTE | 2025-04-10 04:00 | PTCARENOTE ---
Cooling blanket turned on for temp of 100.6 core.
[2025-04-10 04:23] LABS: ALT (SGPT) 50 U/L (0-50); AST (SGOT) 174 U/L (17-59); Albumin 2.7 g/dl (3.5-5.0); Alkaline Phosphatase 75 U/L (38-126); Blood Urea Nitrogen 33 mg/dl (9-20); Calcium 8.7 mg/dl (8.4-10.2); Carbon Dioxide 25 mmol/L (22-30); Chloride 110 mmol/L (98-107); Estimated Creatinine Clearance 74 ml/min; Glucose 149 mg/dl (70-99); Potassium 3.6 mmol/L (3.5-5.1); Sodium 140 mmol/L (135-145); Total Protein 5.8 g/dl (6.3-8.2); eGFR > 60.00
[2025-04-10 05:26] LABS: Glucose - Point of Care 130 mg/dl (70-99)
[2025-04-10] MEDS: LR 1000 IV ×2 (05:47→17:57)
[2025-04-10] MEDS: NOVOLOG FLEXPEN-HIGH RESISTANCE 1 UNITS SC ×2 (05:50→12:27)
--- NOTE | 2025-04-10 06:00 | PTCARENOTE ---
Cooling blanket turned off. Core temp 99.8
[2025-04-10] MEDS: DUONEB 3 ML INH ×3 (07:24→19:41)
--- NOTE | 2025-04-10 08:00 | PTCARENOTE ---
Assumed care of patient. Patient unresponsive and intubated on no sedation. R pupil 5mm nonreactive, L pupil 3mm and nonreactive. Absent corneal, gag, and cough reflexes. Patient w/ unknown posturing with care, does not withdraw to pain and no
purposeful movement. Patient SR/ST on the monitor. +1 RLE edema and +2 LLE edema - Doppler DP pulses bilaterally. #7.0 ETT 25 @ the lip w/ scant ramos secretions. A/C 20/500/.4/+5. R lateral chest tube to wall suction. NGT R nare @ 57cm w/
maroon/brown drainage. Hypoactive bowel sounds. Thermistor Friend in place draining tyler urine. R radial A-Line. R femoral TL w/ LR @75mls/hr. 20G LFA.
[2025-04-10] MEDS: PROTONIX IV 40 MG IV ×2 (08:29→19:48)
[2025-04-10] MEDS: NSS (PRESERVATIVE FREE) 10 ML IV ×2 (08:29→19:49)
[2025-04-10] MEDS: REFRESH EYE DROPS (PF) 1 DROPS BOTH EYES ×2 (08:30→19:48)
--- NOTE | 2025-04-10 08:50 | W.PN.INTV ---
Today's Communication / Plan
Recommendations
.
Assessment
-
Moustapha Brown is a 70M wheelchair bound patient who is s/p an unknown procedure (history limited), wheelchair bound, and NPO who had a witnessed cardiac arrest at [facility] requiring 26 minutes of ACLS with chest compressions and multiple rounds of
epinephrine, as well as intubation with large amounts of food found in the airway. He continued to be obtunded through the course of his ED evaluation and ICU admission. Additionally, he is s/p R chest tube for moderate right PTX and has evidence of
probable aspiration pneumonia on chest imaging.
04/09: Continues to be obtunded 2/2 anoxic brain injury s/p cardiac arrest after aspirating, complicated by PTX and aspiration pneumonia with no change in neurologic status overnight, continued coffee ground emesis, and rhoncorous breath sounds
04/10: No change in neurologic status overnight, continued coffee ground emesis, and rhoncorous breath sounds
1. Anoxic Brain Injury s/p cardiac arrest
- Continue targeted temperature management for total of 72 hrs
- Goal of normothermia
- BP currently maintained off of pressors and cardene drip; goal normotension
- LR @75ml/hr
- Currently intubated; maintain SaO2 92-98%, PaCO2 35-45
- Repeat CT head showed symmetric diffuse cerebral edema
- Monitor i/Os
2. Aspiration Pneumonia
- Continue Unasyn
- Monitor temperature curves, WBCs
- Lactate downtrending, BCx no growth in 24h
3. Right sided Pneumothorax
- Status post chest tube
- Air leak present but frequency decreasing, will likely need one more day before clamp trial
4. Suspected Upper GI Bleed
- Coffee Ground Material in NG suction
- Continue to monitor outputs
- Hold chemical DVT PPx, continue SCDs
- Avoid antiplatelets
- IV PPI
5. Elevated troponin
- Likely in the setting of prolonged cardiac arrest
- Troponin trended down
Subjective Dataa
Subjective Data
Date of Service:
Date of Service: April 10, 2025
Chief Complaint: Programming Internship Follow Up
Subjective:
Patient remains obtunded. Per nursing, there is no change in neurologic status, and patient is still without cough, gag, pupillary reflex. Continued drainage of coffee ground material through the NG. Occasional air leak from chest tube, less
frequent than yesterday.
Objective Data
Data Reviewed
Vital Signs / I&O / Oxygen:
Vital Signs
Temp Pulse Resp BP Pulse Ox
98.2 F 97 18 92/75 100
04/10/25 08:00 04/10/25 07:28 04/10/25 07:28 04/10/25 04:00 04/10/25 07:28
Intake and Output
04/09/25 04/10/25 04/11/25
06:59 06:59 06:59
Intake Total 3354.7 / 3454.7 2355 / 2430 150 / 150
Output Total 1700 / 1745 1016 / 1066 75 / 75
Balance 1654.7 / 1709.7 1339 / 1364 75 / 75
SaO2 [A/C] 100
SaO2 100
Nasal Cannula flow liters per 99
minute
Physical Exam
General: T Max (100.2; cooling blankets reapplied, now 98.2) and Other (no response to painful stimuli)
HEENT: Normocephalic, Anicteric and Other (pupils are dilated and fixed; no gag or cough reflex)
Cardiovascular: S1-S2 and Other (tachycardic, no murmurs)
Respiratory: Rhonchi, ET Tube (in place; Vent @ RR20, TV500, PEEP5, FiO2 @ 40%) and Other (chest tube with intermittent air leak, less frequent than yesterday)
GI: Soft, Non Distended, NG Tube (draining coffee ground material) and Other (PEG tube in place)
Neurology: Other (areflexia as above)
Skin: Other (cool to touch in the extremities, some mottling of the skin around the knees and forearms bilaterally)
Labs/Micro/Reports
Lab Data
04/10/25 03:35
04/10/25 03:35
Microbiology
04/09/25 07:49 Blood/Venous Blood Culture - Preliminary
No Growth in 24 hours- Final report to follow
04/08/25 05:38 Nose MRSA Screen - Final
No Methicillin Resistant Staphylococcus aureus isolated.
[2025-04-10 12:26] LABS: Glucose - Point of Care 113 mg/dl (70-99)
--- NOTE | 2025-04-10 14:33 | PTCARENOTE ---
Systems reviewed - assessment unchanged. GOL spokesperson at bedside to assess patient/situation. EEG performed at bedside - see report.
--- NOTE | 2025-04-10 15:05 | W.PN.HOSP.TC ---
Today's Communication/Plan
-
see note
Assessment / Plan
Assessment / Plan
CT chest
1. No evidence of pulmonary embolism.
2. Nondisplaced/minimally displaced fractures involving the anterior/anterolateral right second and third ribs and left second through seventh ribs.
3. Right pneumothorax with chest tube in place.
4. Findings suggesting probable aspiration pneumonia within the bilateral lungs as described.
CT head
No convincing acute intracranial process.
Probable chronic calcification at the M1/M2 junction, less likely dense MCA sign. Consider follow-up CT head in 2-3 hours and/or CTA head/neck, as clinically indicated.

1. PEA arrest
Respiratory arrest from aspiration
Suspected anoxic brain injury
- EMS report reviewed and patient was found on the floor with food in the mouth, patient PEG tube in apparently to be strict n.p.o.
- Patient was noted on hypoxia/respiratory arrest unknown shockable PEA rhythm
- ~25 minutes of resuscitation efforts were done with ROSC achieved
- Intubated during the resuscitation, significant food debris noted in trachea and pharynx by EMS
2. Anoxic brain injury
- Patient remains unresponsive off of sedation
- No seizure activity on EEG
- CT head showing diffuse bilateral cerebral edema, error in CT head report and radiology notified to correct the report.
- Discussed with cone baker machine and neurologist planning to do further testing
- Patient have poor prognosis at this stage and goal of care will be discussed with guardian
3. Pneumothorax
- Right-sided pneumothorax noted on CT chest likely from chest compression
- Right-sided chest tube has been placed
- Follow-up chest x-ray showing decrease in the size of pneumothorax today
4. Shock - resolved
Lactic acidosis
- Likely due to depressed cardiac function postcardiac arrest
- A-line in place
- Required vasopressor after being admitted from ER.
- Lactic acid have trended down
5. Ventilator dependent respiratory failure
-Ventilator management per pulmonology
6. Aspiration Pneumonia
- CT chest images reviewed and patient have mainly right-sided aspiration pneumonia/pneumonitis
- Maintained on empiric Unasyn for now
- Patient spiking high-grade fever over the night, suspecting central thermal dysregulation
7. Type 2 diabetes mellitus
- On metformin in residential
- Hemoglobin A1c of 6
- Maintain on insulin Lantus/sliding scale protocol
8. Shock liver
-Liver enzymes minimally elevated, monitor
9. Troponin elevation
-Low concern of ACS. elevation in trop secondary to postcardiac arrest chest compression related
-echocardiogram was a poor study and function could not be assessed
Hyperlipidemia
Wheelchair-bound state
Mood disorder
DVT PPX - Lovenox
Full code
04/09 Patient of legal guardian Ms. Betty Bright, contacted the office and Mr. CORTEZ is out of office for next few days, discussed with case management Ms Meek who is in charge of guardianship related work at this point for Ms Bright. I have
updated her and she will in turn talk to Ms Bright about patient current prognosis. I have discussed that patient may require to be switched to comfort care in next 24 hours if no meaningful neurological recovery happens
Total critical care time 38 Mins . Total critical care time documented does not include time spent on separately billed procedures or the services of residents, students, nurses or physician assistants. I personally saw and examined the patient. I
have reviewed all diagnostic interpretations and treatment plans as written. I was present for the dobbins portions of any procedures performed and the inclusive time noted in any critical care statement. Critical care time includes patient management
by me, time spent at the patients bedside, time to review lab and imaging results, discussing patient care, documentation in the medical record, and time spent with the family or caregiver.
Anticipated Discharge: > 48 hours
Subjective/Interval History
-
Date of Service: April 10, 2025
Remains unresponsive off sedation
Continues on ventilatory support
Blood pressure soft,
Right-sided chest tube in place
No acute events reported overnight
Objective Data
-
Labs:
Laboratory Results
04/10/25
03:35
WBC 6.1
Hgb 10.8 L
Hct 31.7 L
Plt Count 111 L
Sodium 140
Potassium 3.6
Chloride 110 H
Carbon Dioxide 25
BUN 33 H
Creatinine 1.0
Glucose 149 H
Calcium 8.7
Total Bilirubin 0.7
AST 174 H
ALT 50
Alkaline Phosphatase 75
Vital Signs:
Vital Signs
Temp Pulse Resp BP Pulse Ox
97.6 F 101 0 108/80 100
04/10/25 12:13 04/10/25 14:45 04/10/25 14:45 04/10/25 12:00 04/10/25 14:45
I&O
04/09/25 04/10/25 04/11/25
06:59 06:59 06:59
Intake Total 3354.7 / 3454.7 2355 / 2430 675 / 675
Output Total 1700 / 1745 1016 / 1066 279 / 279
Balance 1654.7 / 1709.7 1339 / 1364 396 / 396
Review of Systems
-
Unable to obtain full review of systems at this time due to: Acuity
Physical Exam
-
HEENT: Other (on ventilator, NGT in place)
Respiratory: Rhonchi and Chest Tubes (right side )
Cardiac: Regular Rhythm and S1/S2; Negative Murmur or Rub
GI: Soft and Nondistended
Musculoskeletal: Edema, Right Lower Extrem and Edema, Left Lower Extrem
Skin: Other (Livedo reticularis and bilateral lower extremity up to knee level)
Neuro: Other (bilateral minimal dilated pupil); Negative Awake, Alert or Oriented
--- NOTE | 2025-04-10 15:30 | CM ---
Remains intubated. Chest tube to suction/intermittent air leak, CXR in AM, Reconsulting neurology, concern for anoxic injury/brain .
Patient being followed by [facility] for organ donation. Liaison are: Yashira @ [phone] and Tere @ [phone]. Discharge POC: TBD. Was LTC at [facility].
[2025-04-10 16:36] LABS: B.E. 1.5 mmol/L; HCO3 24.2 mmol/L (21-28); O2 Saturation % 100.0 % (94-98); PCO2 31 mmHg (35-48); PO2 411 mmHg (83-108)
[2025-04-10 16:58] LABS: B.E. 0.5 mmol/L; HCO3 24.5 mmol/L (21-28); O2 Saturation % 100.0 % (94-98); PCO2 36 mmHg (35-48); PO2 415 mmHg (83-108)
[2025-04-10 17:18] LABS: Glucose - Point of Care 111 mg/dl (70-99)
--- NOTE | 2025-04-10 17:29 | EEG.RPT ---
Electroencephalogram Report
Recording
Date of EE04/10/25
Type of EEG: Routine
Length of EEG recordin minutes
Done with Video Recording: Yes
Patient Status: Inpatient
Recording Conditions: Awake and Drowsy
Hyperventilation Performed: No
Photic Stimulation Performed: Yes
Report
LESS THAN 1 HOUR REPORT
LESS THAN 1 HOUR EEG INTERPRETATION:
Severely abnormal EEG for age due to absence of electrical activity.
CLINICAL CORRELATION:
This study was suggestive of absent cortical activity. Immediate clinical correlation is advised.
METHODS:
A 21 channel digitized electroencephalogram (EEG) was performed in the ICU. The 10/20 international system of electrode placement was used with ECG and lateral/vertical eye movements recorded. Video was recorded. Persyst quantitative EEG analysis
was performed.
ELECTROENCEPHALOGRAPHER IMPRESSION(S):
Quality of study
Fair
Background
There was no clear anterior-posterior voltage gradient. At maximum there was no clear cortical electrical activity.
Sleep
Not distinguishable
Hyperventilation
Not performed
Photic Stimulation
Failed to activate the record
EKG
Normal sinus rhythm
[2025-04-10] MEDS: NOVOLOG FLEXPEN-HIGH RESISTANCE SC (17:42)
--- NOTE | 2025-04-10 17:44 | PTCARENOTE ---
Brain testing done at bedside by Dr. Mathews. Absent cough, gag, doll's eye, caloric reflexes. Apnea test attempted and patient quickly began breathing spontaneously.
--- NOTE | 2025-04-10 21:00 | PTCARENOTE ---
Assumed care at 1900. Patient unresponsive with fixed pupils, negative corneals, gag and cough reflex. On the vent AC rate 16. TV 450, fi02 40%, peep 5. ET tube #7 at the lip 24cm. Sinus tach on the monitor. NGT to LIWS with brown drainage. R chest
tube -20 wall suction. [facility] updated via phone.
[2025-04-10 21:50] LABS: Glucose - Point of Care 130 mg/dl (70-99)
[2025-04-10] MEDS: LANTUS 0.08 UNITS SC (21:50)
[2025-04-11] VITALS: BP 94/72
--- NOTE | 2025-04-11 | PTCARENOTE ---
No change from previous assessment. Face and hair washed. Eyelid care provided.
[2025-04-11 00:02] LABS: Glucose - Point of Care 127 mg/dl (70-99)
[2025-04-11] MEDS: UNASYN IV ×2 (00:08→05:24)
[2025-04-11] MEDS: NOVOLOG FLEXPEN-HIGH RESISTANCE 1 UNITS SC (00:08)
[2025-04-11 04:00] VITALS: BP 93/73
[2025-04-11 04:30] LABS: B.E. -0.3 mmol/L; HCO3 24.0 mmol/L (21-28); O2 Saturation % 100.0 % (94-98); PCO2 37 mmHg (35-48); PO2 126 mmHg (83-108)
[2025-04-11 04:31] LABS: O2 Therapy 70
[2025-04-11 04:59] LABS: ALT (SGPT) 39 U/L (0-50); AST (SGOT) 123 U/L (17-59); Albumin 2.5 g/dl (3.5-5.0); Alkaline Phosphatase 70 U/L (38-126); Blood Urea Nitrogen 29 mg/dl (9-20); Calcium 8.4 mg/dl (8.4-10.2); Carbon Dioxide 25 mmol/L (22-30); Chloride 111 mmol/L (98-107); Estimated Creatinine Clearance 68 ml/min; Glucose 127 mg/dl (70-99); Potassium 3.4 mmol/L (3.5-5.1); Sodium 140 mmol/L (135-145); Total Protein 5.4 g/dl (6.3-8.2); Triglycerides 140 mg/dl (10-149); eGFR > 60.00
[2025-04-11 05:03] LABS: Hematocrit 29.2 % (39.0-52.0); Hemoglobin 9.2 g/dL (13.0-18.0); Mean Corp Hgb Conc. 31.5 g/dL (33.0-37.0); Mean Corpuscular Volume 99.3 fL (80.0-94.0); Platelet Count 105 10^3/uL (130-400); Red Cell Dist. Width 14.5 % (11.5-14.5)
--- NOTE | 2025-04-11 05:27 | PTCARENOTE ---
No change from previous assessment. Am k 3.4. ICU provider made aware and ordered repletion.
[2025-04-11] MEDS: NOVOLOG FLEXPEN-HIGH RESISTANCE 2 UNITS SC (05:31)
[2025-04-11 05:32] LABS: Glucose - Point of Care 180 mg/dl (70-99)
[2025-04-11] MEDS: LR 1000 IV (05:36)
[2025-04-11 06:00] VITALS: BMI 26.1
[2025-04-11] MEDS: KCL 270 MEQ IV (06:01)
[2025-04-11] MEDS: REFRESH EYE DROPS (PF) 1 DROPS BOTH EYES (07:05)
[2025-04-11] MEDS: PROTONIX IV 40 MG IV (07:05)
[2025-04-11] MEDS: NSS (PRESERVATIVE FREE) 10 ML IV (07:05)
[2025-04-11] MEDS: DUONEB 3 ML INH (07:16)
[2025-04-11 07:31] VITALS: BP 86/69
[2025-04-11 08:00] VITALS: BP 102/74
--- NOTE | 2025-04-11 08:42 | PTCARENOTE ---
Assumed care of patient at 0700. Patient unresponsive on no sedation with no cough/gag/corneal reflexes. R pupil 5mm and fixed, L pupil 3mm and fixed. No purposeful movements/does not withdrawal to pain. Occasional posturing movements with care.
Patient SR/ST on the monitor. BP within normal limits without vasoactive drugs. Patient intubated - #7.0 ETT 24cm at the lip - A/C 16/450/.4/+5. Patient's lungs coarse/rhonchi w/ occasional wheezing. NGT to R nare to LIMS w/ brown output. Chest tube
to R lateral chest -20 wall suction.
--- NOTE | 2025-04-11 10:38 | W.PN.INTV ---
Today's Communication / Plan
Recommendations
Goals of Care discussion with POA
Assessment
-
Moustapha Brown is a 70M wheelchair bound patient who is s/p an unknown procedure (history limited), wheelchair bound, and NPO who had a witnessed cardiac arrest at [facility] requiring 26 minutes of ACLS with chest compressions and multiple rounds of
epinephrine, as well as intubation with large amounts of food found in the airway. He continued to be obtunded through the course of his ED evaluation and ICU admission. Additionally, he is s/p R chest tube for moderate right PTX and has evidence of
probable aspiration pneumonia on chest imaging.
04/09: Continues to be obtunded 2/2 anoxic brain injury s/p cardiac arrest after aspirating, complicated by PTX and aspiration pneumonia with no change in neurologic status overnight, continued coffee ground emesis, and rhoncorous breath sounds
04/10: No change in neurologic status overnight, continued coffee ground drainage, and rhonchorous breath sounds
04/11: No change in neurologic status overnight, drainage from NG minimal now, continued rhonchorous breath sounds, much less frequent air leak
1. Anoxic Brain Injury s/p cardiac arrest
- Continue targeted temperature management for total of 72 hrs
- Goal of normothermia
- BP currently maintained off of pressors and cardene drip; goal normotension
- LR @75ml/hr
- Currently intubated; maintain SaO2 92-98%, PaCO2 35-45
- Repeat CT head on 04/09 showed symmetric and diffuse cerebral edema
- Prognosis guarded; to reach out to POA today to discuss goals of care
2. Aspiration Pneumonia
- Discontinue antibiotics
3. Right sided Pneumothorax
- Status post chest tube
- Air leak present but frequency decreasing, clamp trial was air leak resolved
- See goals of care above
4. Suspected Upper GI Bleed
- Minimal NG drainage
- Continue to monitor outputs
- Hold chemical DVT PPx, continue SCDs
- Avoid antiplatelets
- IV PPI
- See goals of care above
5. Elevated troponin
- Likely in the setting of prolonged cardiac arrest
- Troponin trended down
Subjective Dataa
Subjective Data
Date of Service:
Date of Service: April 11, 2025
Chief Complaint: Formula Checker Follow Up
Subjective:
No changes in neurologic status. Patient still without cough, gag, pupillary light reflex. Still minimal drainage from NG tube. Very intermittent air leak from chest tube.
Objective Data
Data Reviewed
Vital Signs / I&O / Oxygen:
Vital Signs
Temp Pulse Resp BP Pulse Ox
98.3 F 98 15 102/74 97
04/11/25 08:05 04/11/25 10:15 04/11/25 10:15 04/11/25 08:00 04/11/25 10:15
Intake and Output
04/10/25 04/11/25 04/12/25
06:59 06:59 06:59
Intake Total 2355 / 2430 1949 / 2024 300 / 300
Output Total 1016 / 1066 991 / 1026 135 / 135
Balance 1339 / 1364 959 / 999 165 / 165
SaO2 [A/C] 97
SaO2 97
Nasal Cannula flow liters per 99
minute
Physical Exam
General: T Max (98.3 over 24 hours) and Other (no response to painful stimuli)
HEENT: Normocephalic, Anicteric and Other (pupils are dilated and fixed; no gag or cough reflex)
Cardiovascular: S1-S2 and Other (tachycardic, no murmurs)
Respiratory: Rhonchi, ET Tube (in place; Vent @ RR20, TV500, PEEP5, FiO2 @ 40%) and Other (chest tube with intermittent air leak, less frequent than yesterday)
GI: Soft, Non Distended, NG Tube (more minimally draining coffee ground material) and Other (PEG tube in place)
Neurology: Other (areflexia as above)
Skin: Other (cool to touch in the extremities, some mottling of the skin around the knees and forearms bilaterally)
Labs/Micro/Reports
Lab Data
04/11/25 04:39
04/11/25 04:16
Laboratory Results
04/10/25 04/10/25 04/10/25
16:30 16:50 17:00
pH 7.50 H 7.44 Cancelled
pCO2 31 L 36 Cancelled
pO2 411 H 415 H Cancelled
HCO3 24.2 24.5 Cancelled
O2 Delivery Level Cancelled
04/11/25
04:16
pH 7.42
pCO2 37
pO2 126 H
HCO3 24.0
O2 Delivery Level 70
Microbiology
04/09/25 08:46 Blood/Venous Blood Culture - Preliminary
No Growth in 48 hours- Final report to follow
04/09/25 07:49 Blood/Venous Blood Culture - Preliminary
No Growth in 48 hours- Final report to follow
04/08/25 05:38 Nose MRSA Screen - Final
No Methicillin Resistant Staphylococcus aureus isolated.
--- NOTE | 2025-04-11 11:36 | W.PN.HOSP.TC ---
Addendum entered and electronically signed by Gilbert Morley MD 04/12/25 17:27:
Addendum placed in response to CDI query after patient discharged/
: Patient was comatose
Original Note:
Today's Communication/Plan
-
comfort measures
Assessment / Plan
Assessment / Plan
CT chest
1. No evidence of pulmonary embolism.
2. Nondisplaced/minimally displaced fractures involving the anterior/anterolateral right second and third ribs and left second through seventh ribs.
3. Right pneumothorax with chest tube in place.
4. Findings suggesting probable aspiration pneumonia within the bilateral lungs as described.
CT head
No convincing acute intracranial process.
Probable chronic calcification at the M1/M2 junction, less likely dense MCA sign. Consider follow-up CT head in 2-3 hours and/or CTA head/neck, as clinically indicated.

1. PEA arrest
Respiratory arrest from aspiration
Suspected anoxic brain injury
- EMS report reviewed and patient was found on the floor with food in the mouth, patient PEG tube in apparently to be strict n.p.o.
- Patient was noted on hypoxia/respiratory arrest unknown shockable PEA rhythm
- ~25 minutes of resuscitation efforts were done with ROSC achieved
- Intubated during the resuscitation, significant food debris noted in trachea and pharynx by EMS
2. Anoxic brain injury
- Patient remains unresponsive off of sedation
- No seizure activity on EEG
- CT head showing diffuse bilateral cerebral edema, error in CT head report and radiology notified to correct the report.
- Neuro did EEG and low voltage activity noted. Poor prognosis per neuro.
- Patient have poor prognosis at this stage and goal of care will be discussed with guardian
3. Pneumothorax
- Right-sided pneumothorax noted on CT chest likely from chest compression
- Right-sided chest tube has been placed
- Follow-up chest x-ray showing decrease in the size of pneumothorax today
4. Shock - resolved
Lactic acidosis
- Likely due to depressed cardiac function postcardiac arrest
- A-line in place
- Required vasopressor after being admitted from ER.
- Lactic acid have trended down
5. Ventilator dependent respiratory failure
-Ventilator management per pulmonology
6. Aspiration Pneumonia
- CT chest images reviewed and patient have mainly right-sided aspiration pneumonia/pneumonitis
- Maintained on empiric Unasyn for now
- Patient spiking high-grade fever over the night, suspecting central thermal dysregulation
7. Type 2 diabetes mellitus
- On metformin in [place] [facility]
- Hemoglobin A1c of 6
- Maintain on insulin Lantus/sliding scale protocol
8. Shock liver
-Liver enzymes minimally elevated, monitor
9. Troponin elevation
-Low concern of ACS. elevation in trop secondary to postcardiac arrest chest compression related
-echocardiogram was a poor study and function could not be assessed
Lung cancer s/p chemotherapy -further details unclear.
Hyperlipidemia
Wheelchair-bound state
Mood disorder
DVT PPX - Lovenox
Full code
04/09 Patient of legal guardian Ms. Betty Bright, contacted the office and Mr. CORTEZ is out of office for next few days, discussed with case management Ms Meek who is in charge of guardianship related work at this point for Ms Bright. I have
updated her and she will in turn talk to Ms Bright about patient current prognosis. I have discussed that patient may require to be switched to comfort care in next 24 hours if no meaningful neurological recovery happens
04/11 patient remains unresponsive at this time. Makeup Sales Advisor had discussion regarding goal of care and overall patient prognosis with guardian. Guardian has agreeable for patient to be transition to comfort measures, patient will be terminally
extubatedtoday
Total critical care time 36 Mins . Total critical care time documented does not include time spent on separately billed procedures or the services of residents, students, nurses or physician assistants. I personally saw and examined the patient. I
have reviewed all diagnostic interpretations and treatment plans as written. I was present for the dobbins portions of any procedures performed and the inclusive time noted in any critical care statement. Critical care time includes patient management
by me, time spent at the patients bedside, time to review lab and imaging results, discussing patient care, documentation in the medical record, and time spent with the family or caregiver.
Anticipated Discharge: Today
Subjective/Interval History
-
Date of Service: April 11, 2025
Remains intubated on ventilator
Not on vasopressors
Remains nonresponsive
Remains afebrile for last 24-hour
No acute events reported
Objective Data
-
Labs:
Laboratory Results
04/11/25 04/11/25
04:16 04:39
WBC Cancelled 4.3 L
Hgb Cancelled 9.2 L
Hct Cancelled 29.2 L
Plt Count Cancelled 105 L
HCO3 24.0
Sodium 140
Potassium 3.4 L
Chloride 111 H
Carbon Dioxide 25
BUN 29 H
Creatinine 1.1
Glucose 127 H
Calcium 8.4
Total Bilirubin 0.7
AST 123 H
ALT 39
Alkaline Phosphatase 70
Vital Signs:
Vital Signs
Temp Pulse Resp BP Pulse Ox
98.3 F 98 15 102/74 97
04/11/25 08:05 04/11/25 10:15 04/11/25 10:15 04/11/25 08:00 04/11/25 10:15
I&O
04/10/25 04/11/25 04/12/25
06:59 06:59 06:59
Intake Total 2355 / 2430 1949 300 / 300
Output Total 1016 / 1066 991 / 1026 135 / 135
Balance 1339 / 1364 959 / 999 165 / 165
Review of Systems
-
Respiratory: Reports No Symptoms
Cardiac: Reports No Symptoms
Abdomen/GI: Reports No Symptoms
Physical Exam
-
HEENT: Other (on ventilator, NGT in place)
Respiratory: Rhonchi and Chest Tubes (right side )
Cardiac: Regular Rhythm and S1/S2; Negative Murmur or Rub
GI: Soft and Nondistended
Musculoskeletal: Edema, Right Lower Extrem and Edema, Left Lower Extrem
Skin: Other (Livedo reticularis and bilateral lower extremity up to knee level)
Neuro: Other (bilateral minimal dilated pupil); Negative Awake, Alert or Oriented
--- NOTE | 2025-04-11 11:44 | W.PN.UPDATE ---
Update Note
Progress Note Update
Called guardian office and updated regarding patient's clinical condition. Updated regarding cerebral edema, EEG findings and lack of reflexes. Essentially unlikely to have any meaningful recovery.
Per guardian, will proceed with palliative extubation.
Code status changed to DNR/DNI.
--- NOTE | 2025-04-11 12:12 | PN.CDI ---
CDI
- -
CDI:
Physician Documentation Request
Admit Date: 04/07/25 22:01
Dear Doctor Peyman,
Clinical Indicators:
Patient admitted after PEA arrest.
04/09 Neurology PN, 'No sedation, absent cough/gag/corneals.'
04/[address]: Diffuse cerebral edema
04/11 Scientific Recruiter PN, HEENT: Pupil mid dilated, fixed
04/11 PN, 'Anoxic brain injury- Patient remains unresponsive off of sedation'
Based on the above, could you clarify which accurately represent the patient's neurological status:
Comatose
Unresponsive only
Other, please specify
Use of terms such as suspected, likely, concern for, or probable (associated with a specific diagnosis that is being evaluated, monitored, or treated as if it exists) are acceptable and can be coded in the inpatient setting, when documented at the
time of discharge.
Thank you,
LIANA Bermudez RN
CDI Specialist
available via tiger text
Please use your independent medical judgment in providing your response.
--- NOTE | 2025-04-11 12:12 | RESPNOTE ---
1152 patient extubated for comfort care, RN at bedside.
--- NOTE | 2025-04-11 12:23 | W.PN.DEATH ---
Pronouncement of
-
Called to see patient to pronounce.
No spontaneous heart tones or respirations noted.
Patient not responsive to verbal stimuli.
Patient is pronounced .
Time of : 11:57
Date of : 04/11/25
Cause of : Aspiration of food in respiratory tract, respiratory arrest
Family Notified: Yes
--- NOTE | 2025-04-11 12:33 | W.DCSUMMARY ---
Discharge Summary
Discharge Data
Date of Admission: 04/07/25
Date of Discharge: 04/11/25
-
Pending Results: No
Hospital Course
This is a summary on Mr. Moustapha Brown who on 04/11/2025 @ 11:57 AM
List of diagnosis:
Pulseless electrical activity arrest
Respiratory arrest from food aspiration in respiratory tract
Anoxic brain injury
Pneumothorax
Fractured rib
Shock
Lactic acidosis
Ventilator dependent respiratory failure
Aspiration pneumonia
Shock liver
Type 2 diabetes mellitus
Elevated troponin
History of lung cancer s/p chemotherapy
Chronic dysphagia with history of PEG tube placement
Hyperlipidemia
Morbid obesity
Chronic ambulate dysfunction with need of wheelchair use
Mood disorder
Hospital course
Patient is a 70-year-old male with above-mentioned past medical history was brought in by EMS after patient was noted to be in PEA cardiac arrest at nursing facility. Patient was found down on the floor by EMS and noted to be in PEA, during the
resuscitation effort patient was intubated and EMS noted a lot of food debris in pharynx and in trachea. Patient require resuscitation measures for 30 minutes with ROSC achieved. Patient was transferred to [facility] for further care. In ER patient
was noted to be unresponsive off of any sedation. Patient was noted to be in shock state as well. A CT chest showing food debris in large airways with likely new developing aspiration infiltrate on the right upper lobe. Patient also had right
sided pneumothorax and fractured rib likely secondary to chest compression. Right-sided chest tube was placed to relieve the pneumothorax. Patient was transferred to ICU for further monitoring. Patient was started on broad-spectrum antibiotic and
vasopressors. Patient had associated organ dysfunction from shock. Echocardiogram was done although unable to assess cardiac function is no good window was found to visualize cardiac chambers. Patient was maintained on supportive measures for
next 1 to 2 hours. Follow-up CT of the brain was done which showed bilateral diffuse cerebral edema. Neurology was involved in care and patient underwent EEG, which showed low voltage activity with concern of anoxic brain injury. Clinically
patient remained off of sedation and no meaningful neurological recovery was noted. Goal of care discussion were held with patient's guardian who agreed for patient to be terminally extubated and transition to comfort care. This was done on 04/11
and patient at 1157 AM after terminally extubated. Guardian was notified about the patient passing away.
Discharge Plan
-
Referrals:
Kp Fox MD [Family Provider]
Prescriptions:
No Action
atorvastatin [Lipitor] 40 mg Tablet
40 mg feeding tube HS
acetaminophen [Tylenol] 325 mg Tablet
650 mg feeding tube Q4HPRN PRN (Reason: MILD PAIN)
lidocaine 4 % Adhesive Patch,Medicated
1 patch TOPICAL DAILY
loperamide 2 mg Capsule
2 mg feeding tube Q6HPRN PRN (Reason: diarrhea)
sodium chloride 1 gram Tablet
2,000 mg PO BID
Rx Instructions:
CRUSH FINELY AND DISSOLVE IN WATER VIA G-TUBE
olanzapine 10 mg Tablet
12.5 mg feeding tube HS
melatonin 3 mg Tablet
3 mg feeding tube HS
guaifenesin [Reyna-Tussin] 100 mg/5 mL Liquid
100 mg feeding tube Q4HPRN PRN (Reason: COUGH)
famotidine [Pepcid] 20 mg Tablet
20 mg feeding tube DAILY
magnesium hydroxide [Milk of Magnesia] 400 mg/5 mL Suspension
2,400 mg feeding tube DAILYPRN PRN (Reason: if no bm aftr 3rd day)
valproic acid (as sodium salt) 250 mg/5 mL Solution
500 mg feeding tube TID
levothyroxine [Synthroid] 50 mcg Tablet
50 mcg feeding tube QPM
bisacodyl [Dulcolax (bisacodyl)] 10 mg Suppository
10 mg KS DAILYPRN PRN (Reason: if no bm aftr mom)
cephalexin 250 mg/5 mL Suspension For Reconstitution
500 mg feeding tube QID
Rx Instructions:
FOR 7 DAYS STARTING 04/01/25
metformin 1,000 mg Tablet
1,000 mg feeding tube BID
Fleet Enema 19-7 gram/118 mL Enema
118 ml KS DAILYPRN PRN (Reason: if no bm aftr dulcolax)
mupirocin 2 % Ointment
1 applic TOPICAL Q48H
Rx Instructions:
NOSE LACERATION AND RIGHT EYEBROW
mupirocin 2 % Ointment
1 applic TOPICAL DAILYPRN PRN (Reason: NOSE LACERATION)
albuterol sulfate [ProAir HFA] 90 mcg/actuation Hfa Aerosol Inhaler
2 puff INHALATION R Q4HPRN PRN (Reason: sob)
alum-mag hydroxide-simeth [Maalox Maximum Strength] 400-400-40 mg/5 mL Suspension
30 ml feeding tube Q6HPRN PRN (Reason: GERD)
Theragran Liquid
5 ml feeding tube QPM
Refresh Classic (PF) 1.4-0.6 % Dropperette
2 drp BOTH EYES BIDPRN PRN (Reason: DRYNESS)
insulin aspart U-100 [Novolog FlexPen U-100 Insulin] 100 unit/mL (3 mL) Insulin Pen
1 sliding scale dose SC ACHS
Rx Instructions:
201-250=2UNITS, 251-300=3UNITS
povidone-iodine [Betadine] 10 % Solution
1 applic TOPICAL QPM
povidone-iodine [Betadine] 10 % Solution
1 applic TOPICAL DAILYPRN PRN (Reason: LEFT GOMEZ)
ferrous sulfate 220 mg (44 mg iron)/5 mL Solution
330 mg feeding tube BID
Glucerna 1.2 Kwan 0.06-1.2 gram-kcal/mL Liquid
1 ea feeding tube QPM
cholecalciferol (vitamin D3) 10 mcg/5 mL (400 unit/5 mL) Liquid
50 mcg PO DAILY
Preparation H 0.25-14-74.9 % Ointment
1 applic KS DAILYPRN PRN (Reason: hemmorriods)
insulin degludec 100 unit/mL (3 mL) Insulin Pen
15 unit SC HS
cyanocobalamin (vitamin B-12) 2,500 mcg Tablet
2,500 mcg feeding tube DAILY
witch catina 20 % Pads, Medicated
1 pad topical Q2HPRN PRN (Reason: hemmoriods)
magnesium oxide 400 mg magnesium Tablet
400 mg feeding tube BID
balsam abimael-castor oil [Venelex] Ointment
1 applic TOPICAL BID
Breztri Aerosphere 160-9-4.8 mcg/actuation Hfa Aerosol Inhaler
2 inh INHALATION R BID
Metamucil 4 In 1 Fiber Packets
1 packet feeding tube DAILYPRN PRN (Reason: constipation)
Discharge Date and Time
Print Language: KISWAHILI
--- NOTE | 2025-04-11 12:38 | CM ---
Patient on this date 04/11/25 @ 11:57. [facility]
--- NOTE | 2025-04-11 12:57 | PTCARENOTE ---
Dr. Mathews spoke with patient's guardian. Decision made to palliatively extubate. Patient extubated at 1152. Patient became asystolic at 1157. Dr. Morley notified. Postmortem care provided.
== END 2025-04-11 11:57 | disposition expired | DRG 208 ==
LOC: ICU 22:01
PROVIDERS: Nurse Practitioner Primary Care; ADMITTING PHYSICIAN Internal Medicine; ATTENDING PHYSICIAN Hospitalist; CONSULT PHYSICIAN Internal Medicine; CONSULT PHYSICIAN Psychiatry & Neurology Neurology; EMERGENCY PHYSICIAN Emergency Medicine; FAMILY PHYSICIAN Internal Medicine
PROC: 04HE33Z Insertion of Infusion Device into Right Internal Iliac Artery, Percutaneous Approach (ICD-10-PCS; 2025-04-07)
PROC: 5A1945Z Respiratory Ventilation, 24-96 Consecutive Hours (ICD-10-PCS; 2025-04-07)
DX: T17.908A Unspecified foreign body in respiratory tract, part unspecified causing other injury, initial encounter (principal); J69.0 Pneumonitis due to inhalation of food and vomit; G93.6 Cerebral edema; R40.20 Unspecified coma; E87.20 Acidosis, unspecified; J93.9 Pneumothorax, unspecified; K92.2 Gastrointestinal hemorrhage, unspecified; Z99.11 Dependence on respirator [ventilator] status; Z93.1 Gastrostomy status; Z99.3 Dependence on wheelchair; F25.9 Schizoaffective disorder, unspecified; W44.F3XA Food entering into or through a natural orifice, initial encounter; F39 Unspecified mood [affective] disorder; Z66 Do not resuscitate; Z51.5 Encounter for palliative care; I46.8 Cardiac arrest due to other underlying condition
CPT/HCPCS: 32556; 36556; 70450; 71045; 71275; 80053; 80164; 82248; 82805; 82962; 83036; 83605; 83735; 84478; 84484; 85025; 85027; 85610; 85730; 86850; 86900; 86901; 87040; 87070; 93005; 93307; 94002; 94003; 94640; 95708; 95816; 96365; 96375; 99291; Q9957; Q9967